=== PATIENT | male | born 1990 | race Caucasian/White ===

== ENCOUNTER 2016-12-01 13:31 | Emergency (ER) | payer BC ==
[2016-12-01 13:39] VITALS: BMI 34.4
--- NOTE | 2016-12-01 13:48 | PDOC ---
History of Present Illness - General Chief Complaint: Cold Symptoms Stated Complaint: FEVER Time Seen by Provider: 12/01/16 13:44 - History of Present Illness Initial Comments: Healthy 26 year old male presenting with fevers, chills, myalgias, and sore throat for the past week. He recently returned from a business trip to [place] and did have a sick contact on the flight back who was coughing gin the seat next to him. He first noticed a generalized feeling of warmth on 11/25/2016. He then began to experience myalgias during the week and 4 days ago experienced sore throat. he did have one episode of diarrhea directly prior to his day of admission. He denies chest pain, cough, nausea, vomiting, constipation, or any other sick symptoms. 12/01/16 18:25 12/01/16 18:57 Past History - Past Medical History Allergies/Adverse Reactions: Allergies Allergy/AdvReac Type Severity Reaction Status Date / Time No Known Allergies Allergy Verified 12/01/16 13:32 Home Medications: Ambulatory Orders Ibuprofen [Advil -] 400 mg PO PRN PRN 12/01/16 Diabetes: No HTN: No Hypercholesterolemia: No Other medical history: DENIES - Psycho/Social/Smoking Cessation Hx Anxiety: No Suicidal Ideation: No Smoking Status: No Smoking History: Never smoked Have you smoked in the past 12 months: No Number of Cigarettes Smoked Daily: 0 Information on smoking cessation initiated: No Hx Alcohol Use: No Drug/Substance Use Hx: No Substance Use Type: None Review of Systems - Review of Systems Constitutional: Yes: Chills, Fever, Night Sweats. No: Loss of Appetite HEENTM: No: Blurred Vision, Double Vision Respiratory: No: Cough, Shortness of Breath Cardiac (ROS): No: Chest Pain ABD/GI: Yes: Diarrhea. No: Constipated, Nausea, Poor Appetite : No: Burning, Dysuria Musculoskeletal: Yes: Muscle Pain. No: Back Pain, Joint Pain Integumentary: No: Change in Color, Erythema, Lesions Neurological: No: Headache, Paresthesia *Physical Exam - Vital Signs Last Vital Signs Temp Pulse Resp BP Pulse Ox 103.2 F H 114 H 20 130/87 96 12/01/16 13:32 12/01/16 13:32 12/01/16 13:32 12/01/16 13:32 12/01/16 13:32 - Physical Exam General Appearance: Yes: Nourished, Appropriately Dressed. No: Apparent Distress HEENT: positive: EOMI, ALEXANDER, Normal ENT Inspection (with some slight erythema in his posterior oropharynx) Neck: positive: Trachea midline, Normal Thyroid, Supple. negative: Tender, Rigid Respiratory/Chest: positive: Lungs Clear, Normal Breath Sounds. negative: Chest Tender, Respiratory Distress, Accessory Muscle Use Cardiovascular: positive: Regular Rhythm, Regular Rate, S1, S2, Tachycardia. negative: Edema, Murmur Gastrointestinal/Abdominal: positive: Normal Bowel Sounds, Flat, Soft. negative : Tender, Organomegaly Musculoskeletal: positive: Normal Inspection Extremity: positive: Normal Inspection, Normal Range of Motion Integumentary: positive: Normal Color, Dry, Warm Neurologic: positive: Fully Oriented, Alert, Normal Mood/Affect, Normal Response ED Treatment Course - LABORATORY CBC & Chemistry Diagram: 12/01/16 14:40 12/01/16 14:40 Medical Decision Making - Medical Decision Making 12/01/16 18:26 Healthy 26 year old male presenting with fevers, sore throat, myalgias for the past week. This is most likely a prolonged course of a viral illness but things to consider include superimposed bacterial infection or post viral bacterial infection. TB could of concern given his night sweats and fevers but he is not likely at risk for this given his lack of international travel. Zika virus and West Nile virus. CBC and CMP significant for elevation 2.5 x ALT and 2 x AST and 2 x Alk Phos with low albumin to 3.4. Overall still likely consistent with viral syndrome. RUQ US significant for fatty liver change vs. other liver pathology so will refer to primary care physician on Saturday. Patient's fever decreased after 975 PO tylenol and tachycardia also resolved. VSS on discharge. 12/01/16 18:38 12/01/16 19:01 *DC/Admit/Observation/Transfer Diagnosis at time of Disposition: Transaminitis, Viral illness - Discharge Dispostion Disposition: HOME Condition at time of disposition: Improved Admit: No - Referrals Referrals: Chirag Correia MD [Staff Physician] - - Patient Instructions Printed Discharge Instructions: DI for Viral Syndrome Additional Instructions: You were seen for fever, muscle pains, and body aches over the past few week. We believe that this is most likely a viral illness. We ran some labs on you and noticed that your liver enzymes were elevated. We did an abdominal ultrasound and did not find anything wrong with your gallbladder but did see some changes in your liver. Please follow up with your primary care physician at your appointment tomorrow to discuss these ultrasound results along with your elevated liver enzymes. You can take tylenol for the fevers. Please return if your fevers are getting worse despite the Tylenol or you aren't improving over the next few days. Print Language: CROATIAN - Attestations Physician Attestion: 12/01/16 16:58 I, Dr. Елена Nagel, attest that this document has been prepared under my direction and personally reviewed by me in its entirety. I further attest, that it accurately reflects all work, treatment, procedures and medical decision -making performed by me. 12/01/16 19:02
[2016-12-01] MEDS ORDERED: ACETAMINOPHEN 325 MG TABLET (FP) PO ONE (14:15)
[2016-12-01] MEDS ORDERED: ACETAMINOPHEN 325 MG TABLET (FP) ONE (14:32)
[2016-12-01 14:48] LABS: BASOPHIL 1.5 % (0-2.0); EOSINOPHIL 0.1 % (0-4.5); MCH 28.2 pg (25.7-33.7); MCHC 33.9 g/dl (32.0-35.9); MEAN CELL VOLUME 83.1 fl (80-96); MEAN PLT VOLUME 7.9 fl (7.5-11.1); NEUTROPHILS 78.9 % (42.8-82.8); PLATELET COUNT 248 K/MM3 (134-434); RDW 13.4 % (11.9-15.9); WHITE BLOOD COUNT 9.2 K/mm3 (4.0-10.8)
[2016-12-01 15:02] LABS: ALBUMIN 3.4 g/dl (3.5-5.0); ALK PHOS 121 U/L (32-92); ANION GAP 9 (8-16); BILIRUBIN,TOTAL 0.9 mg/dl (0.2-1.0); CALCIUM 8.7 mg/dl (8.4-10.2); CO2 27 mmol/L (22-28); GLUCOSE,RANDOM 96 mg/dl (74-106); SGOT/AST 68 U/L (10-42); SGPT/ALT 138 U/L (10-40); TOT PROT 6.8 g/dl (6.4-8.3)
[2016-12-01 16:26] VITALS: BP 120/83; PULSE 92; TEMP 100.2
--- NOTE | 2016-12-01 16:38 | PDOC ---
Attending Attestation - Resident Resident Name: ShonaChaskulwant - ED Attending Attestation I have performed the following: I have examined & evaluated the patient, The case was reviewed & discussed with the resident, I agree w/resident's findings & plan - HPI HPI: 12/01/16 16:29 1 wk of fever with nausea, body aches, fever, chills no cough mild intermittent headache resolves with advil no neck stiffness, no photophobia, no cough no urinary sx no rash travelled to [place] 11/16 to 11/20, sx started on 11/25 saw PMD yesterday, now to ED for ongoing high fever - Physicial Exam PE: 12/01/16 16:31 anicteric op with slight tonsillar erythema neck supple no nodes chest clear heart rr no M abd neg, no ruq tenderness, no hepatomegaly extrem nl skin no rash - Medical Decision Making 12/01/16 16:32 labs reviewed Laboratory Results - last 24 hr 12/01/16 12/01/16 14:40 14:40 WBC 9.2 RBC 4.97 Hgb 14.0 Hct 41.3 MCV 83.1 MCH 28.2 MCHC 33.9 RDW 13.4 Plt Count 248 MPV 7.9 Neutrophils % 78.9 Lymphocytes % 8.9 Monocytes % 10.6 H Eosinophils % 0.1 Basophils % 1.5 Sodium 134 L Potassium 4.0 Chloride 98 Carbon Dioxide 27 Anion Gap 9 BUN 10 Creatinine 1.0 Creat Clearance w eGFR > 60 Random Glucose 96 Calcium 8.7 Total Bilirubin 0.9 AST 68 H ALT 138 H Alkaline Phosphatase 121 H Total Protein 6.8 Albumin 3.4 L WBC nl with increased monos, suggests viral lfts with mild increased transaminases, nl bili, mild low albumin sono ruq (prelim) with nl liver and nl ducts, nl GB Assess; viral syndrome with increased LFT's, less likely viral hepatitis, more likely other viral illness, will follow up with Dr. Meredith who has been following him, has appt on Saturday
== END 2016-12-01 17:04 | disposition home or self-care (01) ==
LOC: FER 13:31
DX: R74.0 Nonspecific elevation of levels of transaminase and lactic acid dehydrogenase [LDH] (principal); B34.9 Viral infection, unspecified
CPT/HCPCS: 36415; 71020-TC; 76705-TC; 80053; 85025; 99282-25

== ENCOUNTER 2016-12-02 13:58 | Inpatient (IN) | payer BC ==
[2016-12-02] MEDS ORDERED: SODIUM CHLORIDE 0.9% 1000 ML INFUS.BAG IV ONE (14:11)
[2016-12-02 14:15] VITALS: BMI 34.4
[2016-12-02 14:15] LABS: URINE APPEARANCE Cloudy; URINE BILIRUBIN 2+ (NEGATIVE); URINE BLOOD Negative (NEGATIVE); URINE GLUCOSE (UA) Negative (NEGATIVE); URINE KETONE 4+ (NEGATIVE); URINE LEUK ESTERASE Negative (NEGATIVE); URINE NITRITE Negative (NEGATIVE)
[2016-12-02 14:19] LABS: URINE COLOR YELLOW; URINE PROTEIN 2+ (NEGATIVE)
[2016-12-02] MEDS ORDERED: morphine CARPU-JECT 4 MG/1 ML DISP.SYRIN ONE ×2 (14:20→16:47)
[2016-12-02] MEDS ORDERED: morphine CARPU-JECT 4 MG/1 ML DISP.SYRIN IVPUSH ONE ×2 (14:21→16:47)
[2016-12-02 14:22] LABS: URINE RBC 0-2 /hpf (0-3)
[2016-12-02 14:23] LABS: URINE BACTERIA FEW /hpf (NEGATIVE)
[2016-12-02 14:24] LABS: BASOPHIL 2.5 % (0-2.0); MCH 27.8 pg (25.7-33.7); MCHC 33.1 g/dl (32.0-35.9); MEAN CELL VOLUME 83.9 fl (80-96); MEAN PLT VOLUME 8.1 fl (7.5-11.1); NEUTROPHILS 68.4 % (42.8-82.8); PLATELET COUNT 339 K/MM3 (134-434); RDW 13.6 % (11.9-15.9); WHITE BLOOD COUNT 10.7 K/mm3 (4.0-10.8)
[2016-12-02 14:37] LABS: ALBUMIN 3.5 g/dl (3.5-5.0); ALK PHOS 131 U/L (32-92); ANION GAP 12 (8-16); BILIRUBIN,TOTAL 1.2 mg/dl (0.2-1.0); CO2 25 mmol/L (22-28); CREATININE 1.1 mg/dl (0.6-1.3); GLUCOSE,RANDOM 108 mg/dl (74-106); SGOT/AST 77 U/L (10-42); SGPT/ALT 151 U/L (10-40); TOT PROT 7.3 g/dl (6.4-8.3)
--- NOTE | 2016-12-02 14:37 | PDOC ---
Attending Attestation - Resident Resident Name: Jerome Davenportel - ED Attending Attestation I have performed the following: I have examined & evaluated the patient, The case was reviewed & discussed with the resident, I agree w/resident's findings & plan, Exceptions are as noted - HPI HPI: 12/02/16 14:34 26 yo M with no pmhx here with second ed visit for lower abd pain and fever. pt states he has been having fever for 7 days, today developed abd pain. worse lower abd, and left side. worse with movement and deep breath. no cough. did have sore throat throughout the week. chills. did have recent travel to [place], states he sat next to someone on the plan who was also sick. no nausea or vomiting. no urinary complaints. just dark urine . states may have gotten a few mosquito bites. pt was seen yesterday for the same found to have fever, mildly elevated liver enzymes, and us negative for gallstones, mild fatty liver. other mckeon negative. pain llq , no mod factors. sharp, intermittent, no dysuria, no testicular pain, no flank pain. no hematuria, but did not dark urine. today. took tylenol just prior to arrival. no vomiting but does c/o nausea. 12/02/16 14:50 - Physicial Exam PE: 12/02/16 14:36 on exam pt uncomfortable, diaphoretic, lungs clear heart reg tachycardia no mrg. abd soft obese, llq ttp, suprapubic ttp, no cva tendenress. ext wwp skin warm and diaphoretic, no rash. nuero alert oriented x 3 moves all four ext. - Medical Decision Making 12/02/16 14:36 26 yo male with llq abd pain and fevers, now dark urine. differential diverticulitis, viral syndrome, splenic injury, mono. pyelo, infected renal colic or stone, plan bedside fast evaluation iv hydration renal us, likely ct a/ p eval divertiuclitis or other solid organ injury. 12/02/16 14:49 12/02/16 15:03 focused ED ultrasound FAST performed, for undifferentiate abd pain r/o free fluid, right and left upper quadrants scanned with phased array probe, no free fluid noted. no hydroneprhosis of kidneys appreciated. bladder nondistended, no free fluid noted in the pelvis. impression: negative FAST exam, no intraperitoneal free fluid, no hydronephrosis
[2016-12-02] MEDS ORDERED: ONDANSETRON 4 MG/2 ML VIAL ONE (15:00)
--- NOTE | 2016-12-02 15:00 | PDOC ---
History of Present Illness - History of Present Illness Initial Comments: 12/02/16 15:29 Patient is a 26 year old male who presents with abdominal pain. The patient reports a 1 week history of fevers, nausea, and intermittent left-sided abdominal pain. He states that the abdominal pain has been getting progressively worse and more frequent with radiation to his left shoulder and left back. He reports that the pain is worse with movement and comes in waves. He states that he recently traveled from [place] and had a sick contact on the plane ride. He was recently seen in the ED 1 day ago for the same complaints. He was found to have some mild elevation in his liver enzymes at that time and a US of the gallbladder was normal. He denies any SOB, chest pain, or changes with urination or bowel movements. <Sukhjinder Davenport - Last Filed: 12/02/16 19:47> <Kerri Negrete I - Last Filed: 12/02/16 19:57> - General Chief Complaint: Pain, Acute Stated Complaint: abd pain Time Seen by Provider: 12/02/16 14:00 Past History - Past Medical History Diabetes: No HTN: No Hypercholesterolemia: No - Psycho/Social/Smoking Cessation Hx Anxiety: No Suicidal Ideation: No Smoking Status: No Smoking History: Never smoked Have you smoked in the past 12 months: No Number of Cigarettes Smoked Daily: 0 Hx Alcohol Use: Yes Drug/Substance Use Hx: No Substance Use Type: None <Sukhjinder Davenport - Last Filed: 12/02/16 19:47> <Kerri Negrete I - Last Filed: 12/02/16 19:57> - Past Medical History Allergies/Adverse Reactions: Allergies Allergy/AdvReac Type Severity Reaction Status Date / Time No Known Allergies Allergy Verified 12/02/16 13:59 Home Medications: Ambulatory Orders NK [No Known Home Medication] 12/02/16 Review of Systems - Review of Systems Constitutional: Yes: Chills, Fever, Night Sweats HEENTM: Yes: Throat Pain. No: Throat Swelling Respiratory: No: Cough, Shortness of Breath Cardiac (ROS): No: Chest Pain, Palpitations ABD/GI: Yes: Nausea. No: Constipated, Diarrhea, Rectal Bleeding, Vomiting, Tarry Stools : No: Burning, Dysuria, Pain Integumentary: No: Rash Neurological: No: Headache, Numbness, Tingling, Weakness <Sukhjinder Davenport - Last Filed: 12/02/16 19:47> *Physical Exam - Vital Signs Last Vital Signs Temp Pulse Resp BP Pulse Ox 98.8 F 99 H 20 139/84 95 12/02/16 13:59 12/02/16 13:59 12/02/16 13:59 12/02/16 14:24 12/02/16 13:59 - Physical Exam Comments: 12/02/16 16:06 General Appearance: Nourished. No Apparent Distress HEENT: No Pharyngeal Erythema, Tonsillar Exudate, Tonsillar Erythema Respiratory/Chest: Lungs Clear, Normal Breath Sounds. No Crackles, Rales, Rhonchi, Wheezing Cardiovascular: Regular Rhythm, Regular Rate. No Murmur, Gallop/S3, Gallop/S4 Gastrointestinal/Abdominal: Normal Bowel Sounds, Soft, Tenderness to palpation in the left quadrants and left flank. No Guarding, Rebound, Hernia, Hepatomegaly, Spleenomegaly Musculoskeletal: No CVA Tenderness Extremity: Normal Capillary Refill Integumentary: Normal Color, Dry, Warm Neurologic: Fully Oriented, Alert, Normal Mood/Affect, Normal Response <Sukhjinder Davenport - Last Filed: 12/02/16 19:47> - Vital Signs Last Vital Signs Temp Pulse Resp BP Pulse Ox 103.1 F H 114 H 20 154/91 99 12/02/16 17:04 12/02/16 19:52 12/02/16 19:52 12/02/16 19:52 12/02/16 19:52 <Kerri Ngerete I - Last Filed: 12/02/16 19:57> ED Treatment Course - LABORATORY CBC & Chemistry Diagram: 12/02/16 14:15 12/02/16 14:15 - ADDITIONAL ORDERS Additional order review: Laboratory Results 12/02/16 12/02/16 12/02/16 14:15 14:15 14:10 Sodium 132 L Potassium 3.6 Chloride 95 L Carbon Dioxide 25 Anion Gap 12 BUN 10 Creatinine 1.1 Creat Clearance w eGFR > 60 Random Glucose 108 H Calcium 9.0 Total Bilirubin 1.2 H D AST 77 H ALT 151 H Alkaline Phosphatase 131 H Creatine Kinase 88 Total Protein 7.3 Albumin 3.5 Urine Color Yellow Urine Appearance Cloudy Urine pH 6.0 Ur Specific [place] 1.020 Urine Protein 2+ H Urine Glucose (UA) Negative Urine Ketones 4+ H Urine Blood Negative Urine Nitrite Negative Urine Bilirubin 2+ H Urine Urobilinogen 2.0 Ur Leukocyte Esterase Negative Urine RBC 0-2 Urine WBC 2-4 Urine Bacteria Few 12/02/16 14:15 RBC 5.33 MCV 83.9 MCHC 33.1 RDW 13.6 MPV 8.1 Neutrophils % 68.4 Lymphocytes % 16.3 D Monocytes % 12.8 H Eosinophils % 0.0 D Basophils % 2.5 H - Medications Given in the ED: ED Medications Discontinued Medications Generic Name Dose Route Start Last Admin Trade Name Baironq PRN Reason Stop Dose Admin Morphine Sulfate 4 mg 12/02/16 14:21 12/02/16 14:23 Morphine Injection - IVPUSH 12/02/16 14:22 4 mg ONCE ONE Administration Sodium Chloride 1,000 ml 12/02/16 14:11 12/02/16 14:24 Normal Saline - IV 12/02/16 14:12 1,000 ml ONCE ONE Administration <Sukhjinder Davenport - Last Filed: 12/02/16 19:47> - LABORATORY CBC & Chemistry Diagram: 12/02/16 14:15 12/02/16 14:15 - ADDITIONAL ORDERS Additional order review: Laboratory Results 12/02/16 12/02/16 12/02/16 17:33 14:15 14:15 Sodium 132 L Potassium 3.6 Chloride 95 L Carbon Dioxide 25 Anion Gap 12 BUN 10 Creatinine 1.1 Creat Clearance w eGFR > 60 Random Glucose 108 H Lactic Acid 1.7 Calcium 9.0 Total Bilirubin 1.2 H D AST 77 H ALT 151 H Alkaline Phosphatase 131 H Creatine Kinase 88 Total Protein 7.3 Albumin 3.5 Urine Color Urine Appearance Urine pH Ur Specific [place] Urine Protein Urine Glucose (UA) Urine Ketones Urine Blood Urine Nitrite Urine Bilirubin Urine Urobilinogen Ur Leukocyte Esterase Urine RBC Urine WBC Urine Bacteria 12/02/16 14:10 Sodium Potassium Chloride Carbon Dioxide Anion Gap BUN Creatinine Creat Clearance w eGFR Random Glucose Lactic Acid Calcium Total Bilirubin AST ALT Alkaline Phosphatase Creatine Kinase Total Protein Albumin Urine Color Yellow Urine Appearance Cloudy Urine pH 6.0 Ur Specific [place] 1.020 Urine Protein 2+ H Urine Glucose (UA) Negative Urine Ketones 4+ H Urine Blood Negative Urine Nitrite Negative Urine Bilirubin 2+ H Urine Urobilinogen 2.0 Ur Leukocyte Esterase Negative Urine RBC 0-2 Urine WBC 2-4 Urine Bacteria Few 12/02/16 12:50 Influenza Types A,B Antigen (DANGELO) - Final Nasopharyngeal Swab - Final 12/02/16 14:15 RBC 5.33 MCV 83.9 MCHC 33.1 RDW 13.6 MPV 8.1 Neutrophils % 68.4 Lymphocytes % 16.3 D Monocytes % 12.8 H Eosinophils % 0.0 D Basophils % 2.5 H - RADIOLOGY Radiology Studies Ordered: 12/02/16 19:57 [employer]: ([email or web address]) Begin of Report Content Referring Physician: Patient Name: Jay Petersen THIS IS A PRELIMINARY REPORT FROM [facility] EXAM: CT abdomen/pelvis with contrast IMAGES: 544 DATE OF SERVICE: 2016-12-02 16:15:51.0 REASON FOR EXAM: Left lower quadrant pain, rule out diverticulitis COMPARISON: None FINDINGS: There is mild atelectasis in the lower lobes. There is no free air. 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 Additional peripheral low density findings are noted in the spleen possibly regions of splenic infarction. There is minimal adjacent fluid in the retroperitoneum extending in the posterior pararenal fat to the pelvis. There are no obvious gallstones. There is no hydronephrosis. There are no renal calculi. There is no evidence of intestinal obstruction.mild bowel wall thickening noted in portions of the left colon is likely related to decompression of the bowel in these segments. There is an incidental small fat containing umbilical hernia. There are no incarcerated bowel loops. The appendix is normal in size. There is no evidence of appendicitis. Urinary bladder is unremarkable. There are no bladder calculi. Trace free fluid is noted in the dependent portion of the pelvis. THIS DOCUMENT HAS BEEN ELECTRONICALLY SIGNED Rigoberto Ornelas MD 12/02/2016 17:11 RENATO Duran Please call [facility] [phone] ([phone]) with questions. - Medications Given in the ED: ED Medications Discontinued Medications Generic Name Dose Route Start Last Admin Trade Name Freq PRN Reason Stop Dose Admin Morphine Sulfate 4 mg 12/02/16 14:21 12/02/16 14:23 Morphine Injection - IVPUSH 12/02/16 14:22 4 mg ONCE ONE Administration Morphine Sulfate 4 mg 12/02/16 16:47 12/02/16 16:57 Morphine Injection - IVPUSH 12/02/16 16:48 4 mg ONCE ONE Administration Ondansetron HCl 4 mg 12/02/16 15:02 12/02/16 15:03 Zofran Injection IVPUSH 12/02/16 15:03 4 mg ONCE ONE Administration Sodium Chloride 1,000 ml 12/02/16 14:11 12/02/16 14:24 Normal Saline - IV 12/02/16 14:12 1,000 ml ONCE ONE Administration Sodium Chloride 1,000 ml 12/02/16 19:10 12/02/16 18:25 Normal Saline - IV 12/02/16 19:11 1,000 ml NOW ONE Administration <Kerri Negrete I - Last Filed: 12/02/16 19:57> Medical Decision Making - Medical Decision Making 12/02/16 16:07 Patient is a 26 year old male who presents with abdominal pain. Differential includes but is not limited to: Pylonephritis, diverticulitis, viral infection, bacterial infection, metabolic abnormalities. Given his previous presentation yesterday as well as 1 week history of fevers, we believe it is reasonable to obtain a CT abdomen to evaluate for intra-abdominal pathology. We will also send a cbc, cmp, UA, given his history of elevated liver enzymes and to evaluate for metabolic abnormalities. We will send an influenza swab as well. 12/02/16 19:26 CMP was remarkable for a slight elevation in her liver enzymes since his ED visit 1 day ago. Otherwise, his lab values are unremarkable. CT abdomen demonstrated a large splenic cyst as well as concerns for splenic infarcts as read by cannoneer radiologist. We will send a monospot, EBV, and CMV screens due to the possibility that his symptoms are due to a viral illness. We believe that he requires admission for treatment. Patient's PCP is Dr. Correia who admits to the hospitalists and we will contact to discuss the case. <Sukhjinder Davenport - Last Filed: 12/02/16 19:47> *DC/Admit/Observation/Transfer - Discharge Dispostion Admit: Yes - Attestations Physician Attestion: 12/02/16 19:26 I, Dr. Sukhjinder Davenport, attest that this document has been prepared under my direction and personally reviewed by me in its entirety. I further attest, that it accurately reflects all work, treatment, procedures and medical decision -making performed by me. <Sukhjinder Davenport - Last Filed: 12/02/16 19:47> <Kerri Negrete I - Last Filed: 12/02/16 19:57> Diagnosis at time of Disposition: Splenic infarct Fever Qualifiers: Fever type: unspecified Qualified Code(s): R50.9 - Fever, unspecified - Discharge Dispostion Condition at time of disposition: Guarded
[2016-12-02] MEDS ORDERED: ONDANSETRON 4 MG/2 ML VIAL IVPUSH ONE (15:02)
[2016-12-02] MEDS ORDERED: SODIUM CHLORIDE 0.9% 500 ML INFUS.BAG IV ONE (19:10)
[2016-12-02] MEDS ORDERED: ACETAMINOPHEN 325 MG TABLET (FP) PO ONE (20:50)
[2016-12-02] MEDS ORDERED: DEXTROSE 5%-0.45% SALINE 1,000 ML IV SCH (21:00)
--- NOTE | 2016-12-02 22:00 | HP ---
CHIEF COMPLAINT: Fever, Abdominal Pain PCP: Dr. Correia HISTORY OF PRESENT ILLNESS: This is a 26 y/o male with no significant medical history who presents to the ED with fever, bodyaches x 7 days, abdominal pain and nausea x today. Patient reports having fever, chills, body-aches with night sweats last Saturday. Patient reports seeing his PMD last Saturday and having a PPD, throat culture, blood cultures. Patient reports having epigastric pain radiating to LUQ and L- shoulder. Patient reports recent travel to [place] 11/17-11/20, with a sick contact exposure mid air. Patient denies CP, constipation, dysuria. ER course was notable for: (1) CTAP- atelectasis, ?splenic infarct (2) T Max 103 (3) WBC 10.7 (4) Lactic Acid 1.7 Recent Travel: [place] PAST MEDICAL HISTORY: None PAST SURGICAL HISTORY: None Social History: Smoking: Never Alcohol: Socially Drugs: Denies Lives with parent, employed/student Family History: Mother: Lymphoma, Renal Colic Father: Hypertension, HLD Grandparents: Cardiac Brother: Renal Colic Allergies No Known Allergies Allergy (Verified 12/02/16 13:59) HOME MEDICATIONS: Home Medications Medication Instructions Recorded NK [No Known Home Medication] 12/02/16 REVIEW OF SYSTEMS CONSTITUTIONAL: fever, chills, Absent: diaphoresis, generalized weakness, malaise, loss of appetite, weight change HEENT: Absent: rhinorrhea, nasal congestion, throat pain, throat swelling, difficulty swallowing, mouth swelling, ear pain, eye pain, visual changes CARDIOVASCULAR: Absent: chest pain, syncope, palpitations, irregular heart rate, lightheadedness , peripheral edema RESPIRATORY: Absent: cough, shortness of breath, dyspnea with exertion, orthopnea, wheezing, stridor, hemoptysis GASTROINTESTINAL: abdominal pain, nausea Absent: abdominal distension, vomiting, diarrhea, constipation, melena, hematochezia GENITOURINARY: Absent: dysuria, frequency, urgency, hesitancy, hematuria, flank pain, genital pain MUSCULOSKELETAL: myalgia Absent: arthralgia, joint swelling, back pain, neck pain SKIN: Absent: rash, itching, pallor HEMATOLOGIC/IMMUNOLOGIC: Absent: easy bleeding, easy bruising, lymphadenopathy, frequent infections ENDOCRINE: Absent: unexplained weight gain, unexplained weight loss, heat intolerance, cold intolerance NEUROLOGIC: Absent: headache, focal weakness or paresthesias, dizziness, unsteady gait, seizure, mental status changes, bladder or bowel incontinence PSYCHIATRIC: Absent: anxiety, depression, suicidal or homicidal ideation, hallucinations. PHYSICAL EXAMINATION Vital Signs - 24 hr 12/02/16 12/02/16 19:52 20:30 Temperature 102.5 F H Pulse Rate 119 H Pulse Rate [ 114 H Left] Respiratory 20 18 Rate Blood Pressure 151/70 Blood Pressure 154/91 [Left Arm] O2 Sat by Pulse 99 95 Oximetry (%) GENERAL: Awake, alert, and fully oriented, in no acute distress. HEAD: Normal with no signs of trauma. EYES: Pupils equal, round and reactive to light, extraocular movements intact, sclera anicteric, conjunctiva clear. No lid lag. EARS, NOSE, THROAT: Ears normal, nares patent, oropharynx clear without exudates. Dry mucous membranes. NECK: Normal range of motion, supple without lymphadenopathy, JVD, or masses. No nuchal rigidity LUNGS: Breath sounds equal, clear to auscultation bilaterally. No wheezes, and no crackles. No accessory muscle use. HEART: Regular rate and rhythm, normal S1 and S2 without murmur, rub or gallop. ABDOMEN: Soft, not distended, normoactive bowel sounds, no guarding, no rebound , no masses. No hepatomegaly or splenomegaly. epigastrium, LUQ tenderness MUSCULOSKELETAL: Normal range of motion at all joints. No bony deformities or tenderness. No CVA tenderness. UPPER EXTREMITIES: 2+ pulses, warm, well-perfused. No cyanosis. No clubbing. No peripheral edema. LOWER EXTREMITIES: 2+ pulses, warm, well-perfused. No calf tenderness. No peripheral edema. NEUROLOGICAL: Cranial nerves II-XII intact. Normal speech. Normal gait. PSYCHIATRIC: Cooperative. Good eye contact. Appropriate mood and affect. SKIN: Warm, dry, normal turgor, no rashes or lesions noted, normal capillary refill. Laboratory Results - last 24 hr 12/02/16 12/02/16 12/02/16 14:10 14:15 14:15 WBC 10.7 RBC 5.33 Hgb 14.8 Hct 44.8 MCV 83.9 MCH 27.8 MCHC 33.1 RDW 13.6 Plt Count 339 D MPV 8.1 Neutrophils % 68.4 Lymphocytes % 16.3 D Monocytes % 12.8 H Eosinophils % 0.0 D Basophils % 2.5 H Sodium 132 L Potassium 3.6 Chloride 95 L Carbon Dioxide 25 Anion Gap 12 BUN 10 Creatinine 1.1 Creat Clearance w eGFR > 60 Random Glucose 108 H Lactic Acid Calcium 9.0 Total Bilirubin 1.2 H D AST 77 H ALT 151 H Alkaline Phosphatase 131 H Creatine Kinase Total Protein 7.3 Albumin 3.5 Urine Color Yellow Urine Appearance Cloudy Urine pH 6.0 Ur Specific [place]rose 1.020 Urine Protein 2+ H Urine Glucose (UA) Negative Urine Ketones 4+ H Urine Blood Negative Urine Nitrite Negative Urine Bilirubin 2+ H Urine Urobilinogen 2.0 Ur Leukocyte Esterase Negative Urine RBC 0-2 Urine WBC 2-4 Urine Bacteria Few 12/02/16 12/02/16 14:15 17:33 WBC RBC Hgb Hct MCV MCH MCHC RDW Plt Count MPV Neutrophils % Lymphocytes % Monocytes % Eosinophils % Basophils % Sodium Potassium Chloride Carbon Dioxide Anion Gap BUN Creatinine Creat Clearance w eGFR Random Glucose Lactic Acid 1.7 Calcium Total Bilirubin AST ALT Alkaline Phosphatase Creatine Kinase 88 Total Protein Albumin Urine Color Urine Appearance Urine pH Ur Specific Penrose Urine Protein Urine Glucose (UA) Urine Ketones Urine Blood Urine Nitrite Urine Bilirubin Urine Urobilinogen Ur Leukocyte Esterase Urine RBC Urine WBC Urine Bacteria ASSESSMENT/PLAN: This is a 26 y/o male with no significant medical history. Admitted for Splenic Infarct, Fever for further evaluation of their emergent condition. Problem List - Problem (1) Splenic infarct Assessment/Plan: - CTAP- see above - Will continue IVF and pain medications and continue to closely monitor - Monitor CBC, BMP Code(s): D73.5 - INFARCTION OF SPLEEN (2) Fever Assessment/Plan: - Likely secondary to Viral Illness vs Bacteria vs PE - Blood Cultures x2-pending - No leukocytosis - Influenza negative - Will give Tylenol and monitor secondary to mildly elevated LFTs - Appreciate ID Consult Code(s): R50.9 - FEVER, UNSPECIFIED Qualifiers: Fever type: unspecified Qualified Code(s): R50.9 - Fever, unspecified (3) Viral illness Assessment/Plan: - [place], EBV- pending - Patient reports having PPD, throat cultures done at his PMD last Saturday, will have day team f/u - Monitor CBC - Monitor Vitals - Continue IVF Code(s): B34.9 - VIRAL INFECTION, UNSPECIFIED (4) Inspiratory pain Assessment/Plan: - Patient reports pain on deep inspiration, concern for PE - Wells Score 6 - CTA- pending - Will start on Lovenox - O2 - Monitor vitals - Incentive Spirometer Code(s): R07.1 - CHEST PAIN ON BREATHING (5) Transaminitis Assessment/Plan: - Likely secondary to medication vs Hepatitis - CTAP- see above - Will order Hepatitis Panel in am - Monitor BMP Code(s): R74.0 - NONSPEC ELEV OF LEVELS OF TRANSAMNS & LACTIC ACID DEHYDRGNSE (6) DVT prophylaxis Assessment/Plan: - OOB - SCDs - Lovenox SQ Code(s): AZR3381 - Visit type - Emergency Visit Emergency Visit: Yes ED Registration Date: 12/02/16 Care time: The patient presented to the Emergency Department on the above date and was hospitalized for further evaluation of their emergent condition. - New Patient This patient is new to me today: Yes Date on this admission: 12/02/16 - Critical Care Critical Care patient: No
[2016-12-02] MEDS ORDERED: ACETAMINOPHEN 325 MG TABLET (FP) ONE (23:41)
[2016-12-02] MEDS: ENOXAPARIN NA (PORCINE) 120 MG/0.8 ML DISP.SYRIN SQ SCH (23:50)
[2016-12-03] MEDS ORDERED: DEXTROSE 5%-0.45% SALINE 1,000 ML IV SCH (00:23)
[2016-12-03] MEDS ORDERED: ACETAMINOPHEN 500 MG TABLET (FP) PO ONE ×2 (06:15→21:17)
[2016-12-03] MEDS ORDERED: ACETAMINOPHEN 500 MG TABLET (FP) ONE (06:27)
[2016-12-03 09:15] LABS: ANION GAP 9 (8-16); CALCIUM 8.1 mg/dl (8.4-10.2); CO2 24 mmol/L (22-28); CREATININE 0.9 mg/dl (0.6-1.3); GLUCOSE,RANDOM 171 mg/dl (74-106)
[2016-12-03 09:16] LABS: BASOPHIL 0.4 % (0-2.0); MCHC 33.8 g/dl (32.0-35.9); MEAN CELL VOLUME 82.9 fl (80-96); MEAN PLT VOLUME 8.8 fl (7.5-11.1); NEUTROPHILS 85.2 % (42.8-82.8); PLATELET COUNT 304 K/MM3 (134-434); RDW 13.7 % (11.9-15.9)
[2016-12-03] MEDS ORDERED: PT OWN MED DRAWER 7, Y5N ONE ×2 (09:31→21:06)
[2016-12-03] MEDS: ENOXAPARIN NA (PORCINE) 120 MG/0.8 ML DISP.SYRIN SQ SCH (09:36)
[2016-12-03 09:37] LABS: INR 1.67 (0.82-1.09); PROTHROMBIN TIME (PATIENT) 18.5 SEC (10.2-13.0)
--- NOTE | 2016-12-03 09:37 | PN ---
Physical Exam: SUBJECTIVE: Patient seen and examined, patient report generalized abdominal pain OBJECTIVE: patient is a 26 y/o male with no significant past medical history admitted from the emergency department for sepsis and gram positive bacteremia. Vital Signs Period Temp Pulse Resp BP Sys/Estrada Pulse Ox Last 24 Hr 102.0 F-103.1 F 110-119 18-20 136-154/70-91 95-99 GENERAL: The patient is awake, alert, and fully oriented, in no acute distress. HEAD: Normal with no signs of trauma. EYES: PERRL, extraocular movements intact, sclera anicteric, conjunctiva clear. No ptosis. ENT: Ears normal, nares patent, oropharynx clear without exudates, moist mucous membranes. NECK: Trachea midline, full range of motion, supple. LUNGS: Breath sounds equal, clear to auscultation bilaterally, no wheezes, no crackles, no accessory muscle use. HEART: Regular rate and rhythm, S1, S2 without murmur, rub or gallop. ABDOMEN: Soft, diffuse abdominal tenderness, normoactive bowel sounds, no guarding, no rebound, no hepatosplenomegaly, no masses. EXTREMITIES: 2+ pulses, warm, well-perfused, no edema. NEUROLOGICAL: Cranial nerves II through XII grossly intact. Normal speech, gait not observed. PSYCH: Normal mood, normal affect. SKIN: Warm, dry, normal turgor, no rashes or lesions noted Laboratory Results - last 24 hr 12/02/16 12/03/16 12/03/16 20:02 07:30 07:30 WBC 15.0 H D RBC 4.82 Hgb 13.5 Hct 39.9 MCV 82.9 MCH 28.0 MCHC 33.8 RDW 13.7 Plt Count 304 MPV 8.8 Neutrophils % 85.2 H D Lymphocytes % 7.9 L D Monocytes % 6.5 Eosinophils % 0.0 Basophils % 0.4 Sodium 131 L Potassium 3.4 L Chloride 98 Carbon Dioxide 24 Anion Gap 9 BUN 7 D Creatinine 0.9 Random Glucose 171 H D Calcium 8.1 L Monoscreen Negative Active Medications Generic Name Dose Route Start Last Admin Trade Name Freq PRN Reason Stop Dose Admin Enoxaparin Sodium 110 mg 12/02/16 23:45 12/03/16 09:36 Lovenox - SQ 110 mg BID DARREL Administration Ceftriaxone Sodium 100 mls @ 200 mls/hr 08/07/17 11:30 12/03/16 12:20 Rocephin 2gm Ivpb (Pre-Docked) IVPB 200 mls/hr DAILY DARREL Administration Vancomycin HCl 250 mls @ 166.667 mls/hr 12/03/16 12:00 Vancomycin (Pre-Docked) IVPB Q12H DARREL Potassium Chloride/Sodium Chloride 1,000 mls @ 100 mls/hr 12/03/16 13:00 Ns+20 Meq Kcl - IV ASDIR DARREL Morphine Sulfate 4 mg 12/02/16 20:58 12/03/16 10:40 Morphine Injection - IVPUSH 4 mg Q4H PRN Administration PAIN Microbiology 12/02/16 17:33 Blood - Peripheral Venous Blood Culture - Preliminary Pending Organism 12/02/16 17:33 Blood - Peripheral Venous Blood Culture - Preliminary Pending Organism 12/02/16 12:50 Nasopharyngeal Swab Influenza Types A,B Antigen (DANGELO) - Final 12/02/16 12:50 Nasopharyngeal Swab - Final IMAGING ct abd/pelvis reviewed splenic infarct noted ASSESSMENT/PLAN: 1) sepsis gram positive bacteremia vs septic embolic - pending echo - start vanc and rocephin, appreciate ID input for antibiotic approval - monitor wbc and fever curve 2) gi transanimtis - monitor lft's, pending hepatitis panel 3) pulm hypoxia and pain upon inspiration - pending cta of chest r/o pe - pending echo r/o pericardial effusion - continue lovenox f/e/n - regular diet - replete potassium ppx - lovonex - oob - scd - pepcid dispo: requires inpatient telemetry Visit type - Emergency Visit Emergency Visit: Yes ED Registration Date: 12/02/16 Care time: The patient presented to the Emergency Department on the above date and was hospitalized for further evaluation of their emergent condition. - New Patient This patient is new to me today: Yes Date on this admission: 12/03/16 - Critical Care Critical Care patient: No - Discharge Referral Referred to [facility] No
[2016-12-03] MEDS: morphine CARPU-JECT 4 MG/1 ML DISP.SYRIN IVPUSH PRN ×3 (10:40→21:17)
[2016-12-03] MEDS: CEFTRIAXONE 100 ML IVPB SCH (12:20)
[2016-12-03] MEDS ORDERED: D5-NS + 20 MEQ KCL - 1,000 ML IV SCH (12:30)
[2016-12-03] MEDS: VANCOMYCIN 1 GRAM (PRE-DOCKED) 250 ML IVPB SCH (12:59)
[2016-12-03] MEDS: SODIUM CHLORIDE 0.9%/KCL 1,000 ML IV SCH (13:03)
[2016-12-03] MEDS ORDERED: HYDROmorphone HCL CARPU-JECT 1 MG/1 ML DISP.SYRIN IVPUSH ONE (13:11)
[2016-12-03] MEDS ORDERED: POTASSIUM CHLORIDE TABS 20 MEQ TABLET.ER (FP) PO ONE (13:30)
[2016-12-03 13:51] LABS: ALBUMIN 2.8 g/dl (3.5-5.0); ALK PHOS 98 U/L (32-92); AMYLASE 56 U/L (25-125); BILIRUBIN,DIRECT 0.4 mg/dl (0.0-0.2); BILIRUBIN,TOTAL 1.1 mg/dl (0.2-1.0); CPK 56 IU/L (39-308); MAGNESIUM 1.9 mg/dL (1.8-2.4); PHOSPHOROUS 2.3 mg/dl (2.5-4.6); SGOT/AST 34 U/L (10-42); SGPT/ALT 94 U/L (10-40)
[2016-12-03] MEDS: DOCUSATE SODIUM 100 MG CAPSULE (FP) PO SCH ×2 (14:22→21:18)
[2016-12-03] MEDS: NAPH,MB-DB/K PH,MBDB POWDER PACKET PO SCH ×2 (14:22→21:18)
[2016-12-03 14:29] LABS: TROPONIN I (DFP) < 0.03 ng/ml (0.03-0.50)
[2016-12-03] MEDS ORDERED: MAGNESIUM SULF 50% (8.12 MEQ/2 ML-1 GM VIAL) IVPB ONE (14:30)
[2016-12-03 15:59] LABS: URINE MARIJUANA THC NEGATIVE ng/ml (CUTOFF=50)
--- NOTE | 2016-12-03 18:04 | PN ---
Progress Note (short form) - Note Progress Note: ID Consult dictated Staph bacteremia/ sepsis, probable endocarditis Splenic infarcts, probable septic emboli ? Splenic abscess Await c/s Empiric vancomycin/ ceftriaxone Echocardiogram HIV test (pt consents)
--- NOTE | 2016-12-03 19:20 | EKG ---
Test Reason : Blood Pressure : / mmHG Vent. Rate : 110 BPM Atrial Rate : 110 BPM P-R Int : 150 ms QRS Dur : 084 ms QT Int : 328 ms P-R-T Axes : 041 028 023 degrees QTc Int : 443 ms SINUS TACHYCARDIA OTHERWISE NORMAL ECG NO PREVIOUS ECGS AVAILABLE Confirmed by KWESI BIRCH MD ([id number] on 12/03/2016 7:20:17 PM Referred By: Lauren Diaz Confirmed By:KWESI BIRCH MD
[2016-12-03] MEDS: FAMOTIDINE 20 MG TABLET PO SCH (21:18)
[2016-12-04] MEDS: VANCOMYCIN 1 GRAM (PRE-DOCKED) 250 ML IVPB SCH ×3 (00:20→23:14)
[2016-12-04] MEDS: morphine CARPU-JECT 4 MG/1 ML DISP.SYRIN IVPUSH PRN (03:20)
[2016-12-04 08:10] LABS: MCH 28.1 pg (25.7-33.7); MCHC 33.7 g/dl (32.0-35.9); MEAN CELL VOLUME 83.4 fl (80-96); MEAN PLT VOLUME 9.2 fl (7.5-11.1); PLATELET COUNT 335 K/MM3 (134-434); RDW 14.1 % (11.9-15.9); WHITE BLOOD COUNT 26.4 K/mm3 (4.0-10.8)
[2016-12-04 08:31] LABS: ALBUMIN 2.6 g/dl (3.5-5.0); ALK PHOS 92 U/L (32-92); ANION GAP 10 (8-16); CALCIUM 8.2 mg/dl (8.4-10.2); CO2 23 mmol/L (22-28); CREATININE 0.9 mg/dl (0.6-1.3); GLUCOSE,RANDOM 155 mg/dl (74-106); MAGNESIUM 2.4 mg/dL (1.8-2.4); PHOSPHOROUS 2.6 mg/dl (2.5-4.6); SGOT/AST 27 U/L (10-42); SGPT/ALT 75 U/L (10-40); TOT PROT 6.3 g/dl (6.4-8.3)
--- NOTE | 2016-12-04 08:44 | CONS ---
DATE OF CONSULTATION: DATE OF DICTATION: 12/03/2016 HISTORY OF PRESENT ILLNESS: The patient is a 26-year-old previously healthy male evaluated for sepsis. The patient presented to the hospital on December 02, 2016, with complaints of abdominal pain and fever. He reports having generalized body ache for approximately 1 week associated with left upper quadrant abdominal pain for 1-2 days prior to admission. He also began to develop fever prior to admission. He saw his primary care physician where blood work and cultures were done as well as a PPD applied. Symptoms worsened prompting him to come to the emergency room. In the emergency room, patient was ill-appearing. He was febrile, tachycardic, and diaphoretic. Blood cultures are now positive for gram-positive cocci in clusters in 4 out of 4 bottles. He denies having any skin infections. No infected cuts or bruises. He denies history of injection drug use. Of note, the patient recently traveled to [place] where he stayed for 3 days and was well while he was down there. He did have some mosquito bites, but no other inject bites reported. PAST MEDICAL HISTORY: Negative. ALLERGIES: No known allergies. SOCIAL HISTORY: He both works and goes to school. He is a surgical aide and attends school. He is a nonsmoker, nondrinker. No history of injection drug use. He denies risk factors for HIV. He has tested HIV negative in the past. SYSTEMS REVIEW: Neurologic: No loss of consciousness, seizure activity, or focal weakness. Cardiac: Negative for chest pain or palpitations. Respiratory: Negative for cough or sputum production. Gastrointestinal: Negative for vomiting or diarrhea. Genitourinary: Negative for urinary tract infection. LABORATORY DATA: White count 15.0, 85 neutrophils, 7 lymphocytes, 6 monocytes, hematocrit 39.9, platelet count 304. BUN 7, creatinine 0.9, total bilirubin 1.1, alkaline phosphatase 95, AST 34, ALT 94. Urinalysis 2-[address] scan of the abdomen and pelvis showed splenic cyst with splenic infarct and small perisplenic fluid collection.. PHYSICAL EXAMINATION: General: He is awake and alert. He is in moderate distress secondary to left upper quadrant pain. Vital signs: Maximum temperature 103.1, blood pressure 129/73, pulse 116 and regular, respirations 20 per minute. HEENT: Sclerae anicteric. No conjunctival hemorrhages. Heart: Heart sounds S1, S2, tachycardic, no loud murmur. Lungs: Clear. Diminished breath sounds. Poor inspiratory effort secondary to left-sided abdominal pain. Abdomen: Soft. There is left upper quadrant tenderness to palpation. No mass, rebound, or rigidity. Extremities: Negative for edema. Skin: No infected skin wounds noted. IMPRESSION: 1. Staphylococcus bacteremia/sepsis. 2. 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 3. Splenic infarcts, probable septic emboli. 4. Splenic cyst, cannot rule out splenic abscess or infected cyst. Await culture results, repeat cultures have been obtained, continue empiric vancomycin and ceftriaxone, echocardiogram, HIV testing (patient consents). Further recommendations pending cultures. Will follow. Thank you for the kind referral. WOJCIECH DENNIS M.D. [id number]
[2016-12-04 09:23] LABS: BILIRUBIN,TOTAL 1.5 mg/dl (0.2-1.0)
[2016-12-04] MEDS: ONDANSETRON 4 MG/2 ML VIAL IVPB PRN ×2 (09:30→15:00)
--- NOTE | 2016-12-04 09:34 | PN ---
Progress Note, Physician History of Present Illness: Awake, responsive C/O LUQ abdominal pain No C/O N/V Febrile WBC 26.4 - Current Medication List Current Medications: Active Medications Docusate Sodium (Colace -) 100 mg PO TID [facility] Last Admin: 12/03/16 21:18 Dose: Not Given Enoxaparin Sodium (Lovenox -) 40 mg SQ DAILY [facility] Famotidine (Pepcid -) 20 mg PO BID [facility] Last Admin: 12/03/16 21:18 Dose: 20 mg Ceftriaxone Sodium (Rocephin 2gm Ivpb (Pre-Docked)) 100 mls @ 200 mls/hr IVPB DAILY [facility] Last Admin: 12/03/16 12:20 Dose: 200 mls/hr Vancomycin HCl (Vancomycin (Pre-Docked)) 250 mls @ 166.667 mls/hr IVPB Q12H [facility] Last Admin: 12/04/16 00:20 Dose: 166.667 mls/hr Potassium Chloride/Sodium Chloride (Ns+20 Meq Kcl -) 1,000 mls @ 100 mls/hr IV ASDIR [facility] Last Admin: 12/03/16 13:03 Dose: 100 mls/hr Morphine Sulfate (Morphine Injection -) 4 mg IVPUSH Q4H PRN PRN Reason: PAIN Last Admin: 12/04/16 03:20 Dose: 4 mg Potassium Phos/Sodium Phos (Phos-Nak Packet -) 1 packet PO BID [facility] Last Admin: 12/03/16 21:18 Dose: 1 packet - Objective Vital Signs: Vital Signs Temperature 100.3 F H 12/04/16 07:09 Pulse Rate 106 H 12/04/16 07:09 Respiratory Rate 18 12/04/16 07:09 Blood Pressure 132/85 12/04/16 07:09 O2 Sat by Pulse Oximetry (%) 93 L 12/03/16 22:20 Constitutional: Yes: No Distress Eyes: Yes: Conjunctiva Clear Cardiovascular: Yes: Regular Rate and Rhythm, S1, S2. No: Murmur Respiratory: Yes: CTA Bilaterally Gastrointestinal: Yes: Normal Bowel Sounds, Soft, Abdomen, Obese, Tenderness, Other (+ LUQ tenderness to palp) Edema: No Labs: CBC, BMP 12/04/16 07:00 12/04/16 07:00 INR, PTT INR 1.67 (0.82-1.09) H 12/03/16 07:30 Assessment/Plan Staph aureus bacteremia, unclear source Possible endocarditis Splenic infarcts secondary to septic emboli Splenic cyst, possible abscess Await final identification of blood isolate Echocardiogram Check repeat BC
[2016-12-04] MEDS ORDERED: ONDANSETRON 4 MG/2 ML VIAL ONE (09:50)
[2016-12-04] MEDS: CEFTRIAXONE 100 ML IVPB SCH (09:56)
[2016-12-04] MEDS: FAMOTIDINE 20 MG TABLET PO SCH (09:57)
[2016-12-04] MEDS: ENOXAPARIN NA (PORCINE) 40 MG/0.4 ML DISP.SYRIN SQ SCH (09:57)
[2016-12-04] MEDS: NAPH,MB-DB/K PH,MBDB POWDER PACKET PO SCH ×2 (09:59→21:59)
[2016-12-04] MEDS: SODIUM CHLORIDE 0.9%/KCL 1,000 ML IV SCH ×2 (10:00→22:40)
[2016-12-04] MEDS: DOCUSATE SODIUM 100 MG CAPSULE (FP) PO SCH ×3 (11:33→21:59)
[2016-12-04 12:54] LABS: ANISOCYTOSIS 1+; HYPOCHROMIA 1+; PLATELET ESTIMATE ADEQUATE (NORMAL); POLYCHROMASIA 1+; STOMATOCYTE 1+; TEAR DROP CELLS 1+
--- NOTE | 2016-12-04 13:10 | PN ---
Physical Exam: SUBJECTIVE: Patient seen and examined, reports feeling slightly improved, denies any chest pain OBJECTIVE: patient is a 26 y/o male with no significant past medical history admitted from the emergency department for sepsis, staph bacteremia Vital Signs Period Temp Pulse Resp BP Sys/Estrada Pulse Ox Last 24 Hr 98.7 F-103.2 F 105-116 16-20 127-142/71-85 92-93 physical examination GENERAL: The patient is awake, alert, and fully oriented, in no acute distress. HEAD: Normal with no signs of trauma. EYES: PERRL, extraocular movements intact, sclera anicteric, conjunctiva clear. No ptosis. ENT: Ears normal, nares patent, oropharynx clear without exudates, moist mucous membranes. NECK: Trachea midline, full range of motion, supple. LUNGS: Breath sounds equal, clear to auscultation bilaterally, no wheezes, no crackles, no accessory muscle use. HEART: Regular rate and rhythm, S1, S2 without murmur, rub or gallop. ABDOMEN: Soft, obese, left upper quadrant tenderness, normoactive bowel sounds, no guarding, no rebound, no hepatosplenomegaly, no masses. EXTREMITIES: 2+ pulses, warm, well-perfused, no edema. NEUROLOGICAL: Cranial nerves II through XII grossly intact. Normal speech, gait not observed. PSYCH: Normal mood, normal affect. SKIN: Warm, dry, normal turgor, no rashes or lesions noted Laboratory Results - last 24 hr 12/03/16 12/03/16 12/03/16 07:30 07:30 07:30 WBC RBC Hgb Hct MCV MCH MCHC RDW Plt Count MPV Neutrophils % Lymphocytes % Monocytes % Band Neutrophils Platelet Estimate Platelet Comment Polychromasia Hypochromic-Microcytic Anisocytosis Tear Drop Cells Stomatocytes Sodium Potassium Chloride Carbon Dioxide Anion Gap BUN Creatinine Creat Clearance w eGFR Random Glucose Calcium Phosphorus 2.3 L Magnesium 1.9 Total Bilirubin 1.1 H Cancelled Direct Bilirubin 0.4 H Cancelled AST 34 D Cancelled ALT 94 H D Cancelled Alkaline Phosphatase 98 H D Cancelled Creatine Kinase 56 Troponin I < 0.03 L Total Protein 6.0 L Cancelled Albumin 2.8 L Cancelled Total Amylase 56 Cancelled Lipase 22 Cancelled Opiates Screen Methadone Screen Barbiturate Screen Phencyclidine Screen Ur Amphetamines Screen MDMA (Ecstasy) Screen Benzodiazepines Screen Cocaine Screen U Marijuana (THC) Screen Hepatitis A IgM Ab Negative Hep Bs Antigen Negative Hep B Core IgM Ab Negative Hepatitis C Ab (EIA) <0.1 12/03/16 12/03/16 12/04/16 07:30 13:00 07:00 WBC 26.4 H D RBC 5.41 Hgb 15.2 D Hct 45.1 MCV 83.4 MCH 28.1 MCHC 33.7 RDW 14.1 Plt Count 335 MPV 9.2 Neutrophils % 72.0 Lymphocytes % 1.0 L D Monocytes % 11.0 H Band Neutrophils 16.0 H Platelet Estimate Adequate Platelet Comment Few large plts Polychromasia 1+ Hypochromic-Microcytic 1+ Anisocytosis 1+ Tear Drop Cells 1+ Stomatocytes 1+ Sodium Potassium Chloride Carbon Dioxide Anion Gap BUN Creatinine Creat Clearance w eGFR Random Glucose Calcium Phosphorus Cancelled Magnesium Cancelled Total Bilirubin Direct Bilirubin AST ALT Alkaline Phosphatase Creatine Kinase Troponin I Total Protein Albumin Total Amylase Lipase Opiates Screen Positive Methadone Screen Negative Barbiturate Screen Negative Phencyclidine Screen Negative Ur Amphetamines Screen Negative MDMA (Ecstasy) Screen Negative Benzodiazepines Screen Negative Cocaine Screen Negative U Marijuana (THC) Screen Negative Hepatitis A IgM Ab Hep Bs Antigen Hep B Core IgM Ab Hepatitis C Ab (EIA) 12/04/16 07:00 WBC RBC Hgb Hct MCV MCH MCHC RDW Plt Count MPV Neutrophils % Lymphocytes % Monocytes % Band Neutrophils Platelet Estimate Platelet Comment Polychromasia Hypochromic-Microcytic Anisocytosis Tear Drop Cells Stomatocytes Sodium 133 L Potassium 4.5 D Chloride 100 Carbon Dioxide 23 Anion Gap 10 BUN 10 D Creatinine 0.9 Creat Clearance w eGFR > 60 Random Glucose 155 H Calcium 8.2 L Phosphorus 2.6 Magnesium 2.4 D Total Bilirubin 1.5 H D Direct Bilirubin AST 27 D ALT 75 H D Alkaline Phosphatase 92 Creatine Kinase Troponin I Total Protein 6.3 L Albumin 2.6 L Total Amylase Lipase Opiates Screen Methadone Screen Barbiturate Screen Phencyclidine Screen Ur Amphetamines Screen MDMA (Ecstasy) Screen Benzodiazepines Screen Cocaine Screen U Marijuana (THC) Screen Hepatitis A IgM Ab Hep Bs Antigen Hep B Core IgM Ab Hepatitis C Ab (EIA) Active Medications Generic Name Dose Route Start Last Admin Trade Name Freq PRN Reason Stop Dose Admin Docusate Sodium 100 mg 12/03/16 14:00 12/04/16 11:33 Colace - PO Not Given TID [facility] Enoxaparin Sodium 40 mg 12/04/16 10:00 12/04/16 09:57 Lovenox - SQ 40 mg DAILY DARREL Administration Famotidine 20 mg 12/03/16 22:00 12/04/16 09:57 Pepcid - PO 20 mg BID DARREL Administration Ceftriaxone Sodium 100 mls @ 200 mls/hr 12/03/16 11:30 12/04/16 09:56 Rocephin 2gm Ivpb (Pre-Docked) IVPB 200 mls/hr DAILY DARREL Administration Vancomycin HCl 250 mls @ 166.667 mls/hr 12/03/16 12:00 12/04/16 12:06 Vancomycin (Pre-Docked) IVPB 166.667 mls/hr Q12H DARREL Administration Potassium Chloride/Sodium Chloride 1,000 mls @ 100 mls/hr 12/03/16 13:00 10:00 Ns+20 Meq Kcl - IV 100 mls/hr ASDIR DARREL Administration Morphine Sulfate 4 mg 12/02/16 20:58 12/04/16 03:20 Morphine Injection - IVPUSH 4 mg Q4H PRN Administration PAIN Ondansetron HCl 4 mg 12/04/16 11:07 Zofran Injection IVPB Q8H PRN NAUSEA Potassium Phos/Sodium Phos 1 packet 12/03/16 14:15 12/04/16 09:59 Phos-Nak Packet - PO 1 packet BID DARREL Administration Microbiology 12/03/16 12:26 Blood - Peripheral Venous Blood Culture - Preliminary Pending Organism 12/03/16 12:26 Blood - Peripheral Venous Blood Culture - Preliminary Pending Organism 12/02/16 14:10 Urine - Urine Clean Catch Urine Culture - Final NO GROWTH OBTAINED 12/02/16 17:33 Blood - Peripheral Venous Blood Culture - Preliminary Presumptive Mssa (Pbp2a Neg) 12/02/16 17:33 Blood - Peripheral Venous Blood Culture - Preliminary Presumptive Mssa (Pbp2a Neg) 12/02/16 12:50 Nasopharyngeal Swab Influenza Types A,B Antigen (DANGELO) - Final 12/02/16 12:50 Nasopharyngeal Swab - Final IMAGING ct abd/pelvis reviewed splenic infarct noted cta of chest: small to moderate left pleual effusion, nonspecific 4.7 x 1.7cm fluid collection ASSESSMENT/PLAN: 1) sepsis staph bacteremia vs septic embolic vs spleenic abscess - pending echo results - continue vanc and rocephin - ID consulted and following, Dr Caldwell spleenic abscess - continue vanc and rocephin - appreciate IR, Dr Francis input, for possible needle aspiration 2) gi transanimtis resolving, - monitor lft's, pending hepatitis panel negative 3) pulm hypoxia and pain upon inspiration improved - pending echo r/o pericardial effusion f/e/n - regular diet - replete potassium ppx - lovonex hold tomm dose for possible needle aspiration - oob - scd - pepcid dispo: requires inpatient telemetry Visit type - Emergency Visit Emergency Visit: Yes ED Registration Date: 12/02/16 Care time: The patient presented to the Emergency Department on the above date and was hospitalized for further evaluation of their emergent condition. - New Patient This patient is new to me today: No - Critical Care Critical Care patient: No - Discharge Referral Referred to [facility] Med P.C.: No
[2016-12-04] MEDS: LACTOBACILLUS ACIDOPHILUS 1 EACH TAB (FP) PO SCH (16:06)
[2016-12-04 19:29] LABS: INR 1.19 (0.82-1.09); PROTHROMBIN TIME (PATIENT) 13.3 SEC (10.2-13.0)
[2016-12-04] MEDS ORDERED: ONDANSETRON 4 MG/2 ML VIAL IVPUSH ONE (21:50)
[2016-12-04] MEDS ORDERED: ACETAMINOPHEN 325 MG TABLET (FP) PO ONE (21:50)
[2016-12-04] MEDS: RANITIDINE HCL 150 MG TABLET (FP) PO SCH (21:59)
[2016-12-04 23:54] LABS: HIV 1 & 2 AB NEGATIVE; HIV 1 AGp24 NEGATIVE
[2016-12-05] MEDS: DOCUSATE SODIUM 100 MG CAPSULE (FP) PO SCH ×3 (06:07→21:32)
[2016-12-05 08:41] LABS: BASOPHIL 0.4 % (0-2.0); MCH 27.2 pg (25.7-33.7); MCHC 32.6 g/dl (32.0-35.9); MEAN CELL VOLUME 83.5 fl (80-96); MEAN PLT VOLUME 8.2 fl (7.5-11.1); NEUTROPHILS 86.3 % (42.8-82.8); PLATELET COUNT 375 K/MM3 (134-434)
[2016-12-05 09:05] LABS: ALBUMIN 2.2 g/dl (3.4-5.0); ANION GAP 9 (8-16); CALCIUM 8.1 mg/dL (8.5-10.1); CO2 27 mmol/L (21-32); CREATININE 0.7 mg/dL (0.7-1.3); GLUCOSE,RANDOM 99 mg/dL (74-106); MAGNESIUM 2.6 mg/dL (1.8-2.4); PHOSPHOROUS 1.7 mg/dL (2.5-4.9); SGOT/AST 19 U/L (15-37); SGPT/ALT 54 U/L (12-78); TOT PROT 5.8 g/dl (6.4-8.2)
[2016-12-05 09:06] LABS: ALK PHOS 85 U/L (45-117)
[2016-12-05] MEDS ORDERED: CEFTRIAXONE 2 GM in DEXTROSE 5%-WATER 100 ML IVPB SCH (10:45)
[2016-12-05] MEDS ORDERED: DEXTROSE 5%-WATER 100 ML IVPB ONE (10:56)
[2016-12-05] MEDS: RANITIDINE HCL 150 MG TABLET (FP) PO SCH ×2 (10:59→21:14)
[2016-12-05] MEDS: LACTOBACILLUS ACIDOPHILUS 1 EACH TAB (FP) PO SCH (10:59)
[2016-12-05] MEDS: NAPH,MB-DB/K PH,MBDB POWDER PACKET PO SCH ×2 (10:59→21:14)
[2016-12-05] MEDS: SODIUM CHLORIDE 0.9%/KCL 1,000 ML IV SCH ×3 (11:02→23:30)
[2016-12-05] MEDS: CEFTRIAXONE 100 ML IVPB SCH (11:17)
--- NOTE | 2016-12-05 11:57 | PN ---
Progress Note (short form) - Note Progress Note: s/p IR Drainage of spleen- he has a drain with blood tinged purulent material- he is comfortable- has pain at the catheter site echo without gross vegetation Vital Signs Period Temp Pulse Resp BP Sys/Estrada Pulse Ox Last 24 Hr 98.2 F-100.0 F 96-128 18-24 127-147/77-89 96-100 no conjunctival hemorrhages cor-rrr lungs clear abd firm, nt +LUQ drain ext no edema no rash CBC, BMP 12/05/16 08:24 12/05/16 08:24 Microbiology 12/02/16 17:33 Blood - Peripheral Venous Blood Culture - Final Staphylococcus Aureus 12/02/16 17:33 Blood - Peripheral Venous Blood Culture - Final Staphylococcus Aureus 12/03/16 12:26 Blood - Peripheral Venous Blood Culture - Preliminary Staphylococcus Latex Coag Pos 12/03/16 12:26 Blood - Peripheral Venous Blood Culture - Preliminary Staphylococcus Latex Coag Pos 12/02/16 14:10 Urine - Urine Clean Catch Urine Culture - Final NO GROWTH OBTAINED 12/02/16 12:50 Nasopharyngeal Swab Influenza Types A,B Antigen (DANGELO) - Final 12/02/16 12:50 Nasopharyngeal Swab - Final meds reviewed Laboratory Tests 12/04/16 07:00 HIV 1&2 Antibody Screen Negative HIV P24 Antigen Negative a/p MSSA bacteremia probable MSSA endocarditis s/p splenic abscess drainage 12/05 will switch to nafcillin esr/crp EMILY repeat blood cultures pending will order quantitative immunoglobulins d/w Dr Caldwell d/w hospitalist
[2016-12-05] MEDS: morphine CARPU-JECT 4 MG/1 ML DISP.SYRIN IVPUSH PRN ×2 (12:35→18:00)
--- NOTE | 2016-12-05 13:48 | PN ---
Progress Note (short form) - Note Progress Note: Subjective: The patient was seen and examined at the bedside, he is post IR with splenic drainage and COLLIN drain in place. He has complaints of gas Current Medications Generic Name Dose Route Start Last Admin Trade Name Freq PRN Reason Stop Dose Admin Acetaminophen 650 mg 12/05/16 08:42 Tylenol - PO Q4H PRN FEVER OR PAIN Docusate Sodium 100 mg 12/03/16 14:00 12/05/16 06:07 Colace - PO Not Given TID DARREL Enoxaparin Sodium 40 mg 12/04/16 10:00 12/04/16 09:57 Lovenox - SQ 40 mg DAILY DARREL Administration Potassium Chloride/Sodium Chloride 1,000 mls @ 100 mls/hr 12/03/16 13:00 11:02 Ns+20 Meq Kcl - IV 100 mls/hr ASDIR DARREL Administration Nafcillin Sodium 2 gm/ 100 mls @ 100 mls/hr 12/05/16 14:00 Dextrose IVPB Q4H-IV DARREL Protocol Lactobacillus Acidophilus 1 tab 12/04/16 15:30 12/05/16 10:59 Bacid - PO 1 tab DAILY DARREL Administration Morphine Sulfate 4 mg 12/02/16 20:58 12/05/16 12:35 Morphine Injection - IVPUSH 4 mg Q4H PRN Administration PAIN Ondansetron HCl 4 mg 12/04/16 11:07 12/04/16 15:00 Zofran Injection IVPB 4 mg Q8H PRN Administration NAUSEA Potassium Phos/Sodium Phos 1 packet 12/03/16 14:15 12/05/16 10:59 Phos-Nak Packet - PO 1 packet BID DARREL Administration Ranitidine HCl 150 mg 12/04/16 22:00 12/05/16 10:59 Zantac - PO 150 mg BID DARREL Administration Objective: Vital Signs Period Temp Pulse Resp BP Sys/Estrada Pulse Ox Last 24 Hr 98.2 F-100.0 F 96-128 18-24 127-147/78-89 96-100 Physical Exam: General: NAD, A&Ox3 Lungs: CTA bilaterally Heart: RRR, S1S2 Abd: LUQ with drain, tender. Normoactive bowel sounds Ext: Warm, well-perfused. 2+ DP/PT bilaterally Neuro: No focal deficits CBCD WBC 23.0 K/mm3 (4.0-10.0) H 12/05/16 08:24 RBC 4.51 M/mm3 (4.00-5.60) 12/05/16 08:24 Hgb 12.3 GM/dL (11.7-16.9) 12/05/16 08:24 Hct 37.7 % (35.4-49) 12/05/16 08:24 MCV 83.5 fl (80-96) 12/05/16 08:24 MCHC 32.6 g/dl (32.0-35.9) 12/05/16 08:24 RDW 15.0 % (11.9-15.9) 12/05/16 08:24 Plt Count 375 K/MM3 (134-434) 12/05/16 08:24 MPV 8.2 fl (7.5-11.1) 12/05/16 08:24 CMP Sodium 138 mmol/L (136-145) 12/05/16 08:24 Potassium 4.2 mmol/L (3.5-5.1) 12/05/16 08:24 Chloride 102 mmol/L (98-107) 12/05/16 08:24 Carbon Dioxide 27 mmol/L (21-32) 12/05/16 08:24 Anion Gap 9 (8-16) 12/05/16 08:24 BUN 9 mg/dL (7-18) 12/05/16 08:24 Creatinine 0.7 mg/dL (0.7-1.3) 12/05/16 08:24 Creat Clearance w eGFR > 60 (>60) 12/05/16 08:24 Random Glucose 99 mg/dL (74-106) 12/05/16 08:24 Calcium 8.1 mg/dL (8.5-10.1) L 12/05/16 08:24 Total Bilirubin 1.0 mg/dL (0.2-1.0) 12/05/16 08:24 AST 19 U/L (15-37) 12/05/16 08:24 ALT 54 U/L (12-78) 12/05/16 08:24 Alkaline Phosphatase 85 U/L (45-117) 12/05/16 08:24 Total Protein 5.8 g/dl (6.4-8.2) L 12/05/16 08:24 Albumin 2.2 g/dl (3.4-5.0) L 12/05/16 08:24 CARDIAC ENZYMES Creatine Kinase 56 IU/L (39-308) 12/03/16 07:30 Troponin I < 0.03 ng/ml (0.03-0.50) L 12/03/16 07:30 Microbiology 12/02/16 17:33 Blood - Peripheral Venous Blood Culture - Final Staphylococcus Aureus 12/02/16 17:33 Blood - Peripheral Venous Blood Culture - Final Staphylococcus Aureus 12/03/16 12:26 Blood - Peripheral Venous Blood Culture - Preliminary Staphylococcus Latex Coag Pos 12/03/16 12:26 Blood - Peripheral Venous Blood Culture - Preliminary Staphylococcus Latex Coag Pos 12/02/16 14:10 Urine - Urine Clean Catch Urine Culture - Final NO GROWTH OBTAINED 12/02/16 12:50 Nasopharyngeal Swab Influenza Types A,B Antigen (DANGELO) - Final 12/02/16 12:50 Nasopharyngeal Swab - Final Assessment: This is a 26 year old male with no significant PMHx who presented to the ED with abdominal pain, nausea, vomiting, fever, chills, sweats. Plan: 1) ID: Sepsis 2/2 MSSA bacteremia - Repeat blood cultures sent today, f/u - Abx switched to Nafcillin today - TTE with no obvious vegetation - F/u cardiology consult for EMILY to r/o endocarditis - F/u ESR - F/u CRP - F/u quantitative immunoglobulins - Appreciate ID consult Splenic abscess s/p drainage on 12/05 - Monitor drainage - F/u abscess culture 2) F/E/N: - Regular diet - Monitor electrolytes - Hypophosphatemia: replete 3) Prophylaxis: - SCDs bilaterally - Hold chemical DVT prophylaxis until cleared by IR to restart 4) Dispo: - Requires continued inpatient care CODE STATUS: FULL CODE Visit type - Emergency Visit Emergency Visit: Yes ED Registration Date: 12/02/16 Care time: The patient presented to the Emergency Department on the above date and was hospitalized for further evaluation of their emergent condition. - New Patient This patient is new to me today: Yes Date on this admission: 12/05/16 - Critical Care Critical Care patient: No
[2016-12-05] MEDS ORDERED: PT OWN MED DRAWER 7, Y5N ONE ×2 (14:08→21:13)
[2016-12-05] MEDS: NAFCILLIN - 2 GM in DEXTROSE 5%-WATER - 100 ML IVPB SCH ×3 (14:11→21:14)
[2016-12-05] MEDS: ACETAMINOPHEN 325 MG TABLET (FP) PO PRN ×2 (14:12→18:30)
[2016-12-05] MEDS: SIMETHICONE 80 MG TAB.CHEW (FP) PO PRN ×2 (14:30→21:22)
--- NOTE | 2016-12-05 15:29 | CON.CARD ---
Consult Consult Specialty:: Cardiology - History of Present Illness Chief Complaint: Fevers. Body aches History of Present Illness: This is a 26 year old male with who presents with fevers, epigastric pain, body aches, and was noted to have a splenic abcess. His WBC was 23. Chest CT was negative for a PE. EKG showed sinus tachycardia at 110 BPM with normal intervals , normal axis, and NSSTTW changes. He had IR drainage of his spleen. Blood cultures were positive for Staph Aureus. Echocardiogram 12/03/16 showed an EF of 59%, normal LV size and functon and normal RV size and function. No vegetations seen. - Alcohol/Substance Use Hx Alcohol Use: Yes - Smoking History Smoking history: Never smoked Have you smoked in the past 12 months: No Aproximately how many cigarettes per day: 0 Home Medications - Allergies Allergies/Adverse Reactions: Allergies Allergy/AdvReac Type Severity Reaction Status Date / Time No Known Allergies Allergy Verified 12/02/16 13:59 - Home Medications Home Medications: Ambulatory Orders NK [No Known Home Medication] 12/02/16 Review of Systems Unable to obtain ROS, reason: As per HPI Vital Signs: Vital Signs Temperature 100.3 F H 12/05/16 14:00 Pulse Rate 120 H 12/05/16 14:00 Respiratory Rate 24 12/05/16 14:00 Blood Pressure 129/73 12/05/16 14:00 O2 Sat by Pulse Oximetry (%) 100 12/05/16 10:16 Constitutional: Yes: Other (Ill appearing) Neck: Yes: WNL Respiratory: Yes: CTA Bilaterally Gastrointestinal: Yes: Soft Cardiovascular: Yes: Regular Rate and Rhythm JVD: No Heart Sounds: Yes: S1, S2 (Tachycardiac) Extremities: Yes: WNL Edema: No Neurological: Yes: WNL Psychiatric: Yes: WNL - Other Data Labs, Other Data: CBC, BMP 12/05/16 08:24 12/05/16 08:24 INR, PTT INR 1.19 (0.82-1.09) 12/04/16 13:01 Assessment/Plan This is a 26 year old male with who presents with fevers, epigastric pain, body aches, and was noted to have a splenic abcess. His WBC was 23. Chest CT was negative for a PE. EKG showed sinus tachycardia at 110 BPM with normal intervals , normal axis, and NSSTTW changes. He had IR drainage of his spleen. Blood cultures were positive for Staph Aureus. Echocardiogram 12/03/16 showed an EF of 59%, normal LV size and function and normal RV size and function. No vegetations seen. ABX as per medicine team and ID Monitor blood cultures Plan for a EMILY
[2016-12-06] MEDS: ACETAMINOPHEN 325 MG TABLET (FP) PO PRN (00:44)
[2016-12-06] MEDS: NAFCILLIN - 2 GM in DEXTROSE 5%-WATER - 100 ML IVPB SCH ×6 (02:32→21:33)
[2016-12-06] MEDS ORDERED: PT OWN MED DRAWER 7, Y5N ONE ×2 (05:56→20:51)
[2016-12-06] MEDS: DOCUSATE SODIUM 100 MG CAPSULE (FP) PO SCH ×3 (05:57→21:34)
[2016-12-06 07:38] LABS: MCH 27.4 pg (25.7-33.7); MCHC 32.5 g/dl (32.0-35.9); MEAN CELL VOLUME 84.2 fl (80-96); MEAN PLT VOLUME 8.1 fl (7.5-11.1); PLATELET COUNT 434 K/MM3 (134-434); RDW 15.2 % (11.9-15.9); WHITE BLOOD COUNT 20.9 K/mm3 (4.0-10.0)
[2016-12-06 08:15] LABS: ALK PHOS 98 U/L (45-117); ANION GAP 8 (8-16); BILIRUBIN,TOTAL 2.2 mg/dL (0.2-1.0); CO2 27 mmol/L (21-32); CREATININE 0.8 mg/dL (0.7-1.3); GLUCOSE,RANDOM 95 mg/dL (74-106); MAGNESIUM 2.6 mg/dL (1.8-2.4); PHOSPHOROUS 3.4 mg/dL (2.5-4.9); SGOT/AST 33 U/L (15-37); SGPT/ALT 56 U/L (12-78); TOT PROT 5.4 g/dl (6.4-8.2)
[2016-12-06] MEDS: morphine CARPU-JECT 4 MG/1 ML DISP.SYRIN IVPUSH PRN ×2 (08:29→13:15)
[2016-12-06 08:46] LABS: C-REACTIVE PROTEIN 28.1 MG/DL (0.00-0.3)
--- NOTE | 2016-12-06 08:56 | PN ---
Progress Note (short form) - Note Progress Note: Subjective: The patient was seen and examined at the bedside, he just received Morphine so he is stating he is "feeling good" Current Medications Generic Name Dose Route Start Last Admin Trade Name Lisa PRN Reason Stop Dose Admin Acetaminophen 650 mg 12/05/16 08:42 12/06/16 00:44 Tylenol - PO 650 mg Q4H PRN Administration FEVER OR PAIN Docusate Sodium 100 mg 12/03/16 14:00 12/06/16 05:57 Colace - PO Not Given TID DARREL Enoxaparin Sodium 40 mg 12/04/16 10:00 12/04/16 09:57 Lovenox - SQ 40 mg DAILY DARREL Administration Potassium Chloride/Sodium Chloride 1,000 mls @ 100 mls/hr 12/03/16 13:00 23:30 Ns+20 Meq Kcl - IV 100 mls/hr ASDIR DARREL Administration Nafcillin Sodium 2 gm/ 100 mls @ 100 mls/hr 12/05/16 14:00 12/06/16 05:57 Dextrose IVPB 100 mls/hr Q4H-IV DARREL Administration Protocol Lactobacillus Acidophilus 1 tab 12/04/16 15:30 12/05/16 10:59 Bacid - PO 1 tab DAILY DARREL Administration Morphine Sulfate 2 mg 12/06/16 08:55 Morphine Injection - IVPUSH Q4H PRN PAIN Ondansetron HCl 4 mg 12/04/16 11:07 12/04/16 15:00 Zofran Injection IVPB 4 mg Q8H PRN Administration NAUSEA Ranitidine HCl 150 mg 12/04/16 22:00 12/05/16 21:14 Zantac - PO 150 mg BID DARREL Administration Simethicone 80 mg 12/05/16 14:15 12/05/16 21:22 Mylicon - PO 80 mg QID PRN Administration GAS Objective: Vital Signs Period Temp Pulse Resp BP Sys/Estrada Pulse Ox Last 24 Hr 98.9 F-102 F 88-120 18-24 111-146/59-89 98-100 Physical Exam: General: NAD, A&Ox3 Lungs: CTA bilaterally Heart: RRR, S1S2 Abd: LUQ with drain, tender. Normoactive bowel sounds Ext: Warm, well-perfused. 2+ DP/PT bilaterally Neuro: No focal deficits CBCD WBC 20.9 K/mm3 (4.0-10.0) H 12/06/16 07:29 RBC 4.60 M/mm3 (4.00-5.60) 12/06/16 07:29 Hgb 12.6 GM/dL (11.7-16.9) 12/06/16 07:29 Hct 38.7 % (35.4-49) 12/06/16 07:29 MCV 84.2 fl (80-96) 12/06/16 07:29 MCHC 32.5 g/dl (32.0-35.9) 12/06/16 07:29 RDW 15.2 % (11.9-15.9) 12/06/16 07:29 Plt Count 434 K/MM3 (134-434) 12/06/16 07:29 MPV 8.1 fl (7.5-11.1) 12/06/16 07:29 CMP Sodium 138 mmol/L (136-145) 12/06/16 07:29 Potassium 4.4 mmol/L (3.5-5.1) 12/06/16 07:29 Chloride 103 mmol/L (98-107) 12/06/16 07:29 Carbon Dioxide 27 mmol/L (21-32) 12/06/16 07:29 Anion Gap 8 (8-16) 12/06/16 07:29 BUN 9 mg/dL (7-18) 12/06/16 07:29 Creatinine 0.8 mg/dL (0.7-1.3) 12/06/16 07:29 Creat Clearance w eGFR > 60 (>60) 12/06/16 07:29 Random Glucose 95 mg/dL (74-106) 12/06/16 07:29 Calcium 8.0 mg/dL (8.5-10.1) L 12/06/16 07:29 Total Bilirubin 2.2 mg/dL (0.2-1.0) H D 12/06/16 07:29 AST 33 U/L (15-37) D 12/06/16 07:29 ALT 56 U/L (12-78) 12/06/16 07:29 Alkaline Phosphatase 98 U/L (45-117) 12/06/16 07:29 Total Protein 5.4 g/dl (6.4-8.2) L 12/06/16 07:29 Albumin 2.0 g/dl (3.4-5.0) L 12/06/16 07:29 CARDIAC ENZYMES Creatine Kinase 56 IU/L (39-308) 12/03/16 07:30 Troponin I < 0.03 ng/ml (0.03-0.50) L 12/03/16 07:30 Microbiology 12/05/16 08:24 Blood - Peripheral Venous Blood Culture - Preliminary NO GROWTH OBTAINED AFTER 24 HOURS, INCUBATION TO CONTINUE FOR 4 DAYS. 12/05/16 08:24 Blood - Peripheral Venous Blood Culture - Preliminary NO GROWTH OBTAINED AFTER 24 HOURS, INCUBATION TO CONTINUE FOR 4 DAYS. 12/05/16 10:35 Abscess Gram Stain - Final 12/02/16 17:33 Blood - Peripheral Venous Blood Culture - Final Staphylococcus Aureus 12/02/16 17:33 Blood - Peripheral Venous Blood Culture - Final Staphylococcus Aureus 12/03/16 12:26 Blood - Peripheral Venous Blood Culture - Preliminary Staphylococcus Latex Coag Pos 12/03/16 12:26 Blood - Peripheral Venous Blood Culture - Preliminary Staphylococcus Latex Coag Pos 12/02/16 14:10 Urine - Urine Clean Catch Urine Culture - Final NO GROWTH OBTAINED 12/02/16 12:50 Nasopharyngeal Swab Influenza Types A,B Antigen (DANGELO) - Final 12/02/16 12:50 Nasopharyngeal Swab - Final Assessment: This is a 26 year old male with no significant PMHx who presented to the ED with abdominal pain, nausea, vomiting, fever, chills, sweats. Plan: 1) ID: Sepsis 2/2 MSSA bacteremia - Tmax 102 - Continue Nafcillin (12/05- ) - TTE with no obvious vegetation - F/u ESR - F/u CRP - F/u quantitative immunoglobulins - Per cards consult, will schedule EMILY to r/o endocarditis - Appreciate ID consult Splenic abscess s/p drainage on 12/05 - Monitor drainage: 140ml on 12/05 - F/u abscess culture 2) F/E/N: - Regular diet - Monitor electrolytes - Hypophosphatemia: resolved 3) Prophylaxis: - SCDs bilaterally - Start Lovenox today 4) Dispo: - Requires continued inpatient care CODE STATUS: FULL CODE Visit type - Emergency Visit Emergency Visit: Yes ED Registration Date: 12/02/16 Care time: The patient presented to the Emergency Department on the above date and was hospitalized for further evaluation of their emergent condition. - New Patient This patient is new to me today: No - Critical Care Critical Care patient: No
[2016-12-06 09:04] LABS: METAMYELOCYTE 1 % (0-2); PLATELET ESTIMATE INCREASED (NORMAL)
[2016-12-06] MEDS: ENOXAPARIN NA (PORCINE) 40 MG/0.4 ML DISP.SYRIN SQ SCH (09:57)
[2016-12-06] MEDS: LACTOBACILLUS ACIDOPHILUS 1 EACH TAB (FP) PO SCH (09:59)
[2016-12-06] MEDS: RANITIDINE HCL 150 MG TABLET (FP) PO SCH ×2 (10:00→21:34)
--- NOTE | 2016-12-06 11:28 | PN ---
Progress Note, Physician Chief Complaint: ID Nafcillin Complains of pain catheter site - Current Medication List Current Medications: Active Medications Acetaminophen (Tylenol -) 650 mg PO Q4H PRN PRN Reason: FEVER OR PAIN Last Admin: 12/06/16 00:44 Dose: 650 mg Docusate Sodium (Colace -) 100 mg PO TID [facility] Last Admin: 12/06/16 05:57 Dose: Not Given Enoxaparin Sodium (Lovenox -) 40 mg SQ DAILY [facility] Last Admin: 12/06/16 09:57 Dose: Not Given Potassium Chloride/Sodium Chloride (Ns+20 Meq Kcl -) 1,000 mls @ 100 mls/hr IV ASDIR [facility] Last Admin: 12/05/16 23:30 Dose: 100 mls/hr Nafcillin Sodium 2 gm/ (Dextrose) 100 mls @ 100 mls/hr IVPB Q4H-IV DARREL PRN Reason: Protocol Last Admin: 12/06/16 09:59 Dose: 100 mls/hr Lactobacillus Acidophilus (Bacid -) 1 tab PO DAILY [facility] Last Admin: 12/06/16 09:59 Dose: 1 tab Morphine Sulfate (Morphine Injection -) 2 mg IVPUSH Q4H PRN PRN Reason: PAIN Ondansetron HCl (Zofran Injection) 4 mg IVPB Q8H PRN PRN Reason: NAUSEA Last Admin: 12/04/16 15:00 Dose: 4 mg Ranitidine HCl (Zantac -) 150 mg PO BID [facility] Last Admin: 12/06/16 10:00 Dose: 150 mg Simethicone (Mylicon -) 80 mg PO QID PRN PRN Reason: GAS Last Admin: 12/05/16 21:22 Dose: 80 mg - Objective Vital Signs: Vital Signs Temperature 99.6 F 12/06/16 08:31 Pulse Rate 88 12/06/16 06:05 Respiratory Rate 20 12/06/16 06:05 Blood Pressure 126/67 12/06/16 06:05 O2 Sat by Pulse Oximetry (%) 100 12/05/16 20:07 Cardiovascular: Yes: Regular Rate and Rhythm, S1, S2 Respiratory: Yes: WNL, Regular, CTA Bilaterally Gastrointestinal: Yes: WNL, Normal Bowel Sounds, Soft. No: Tenderness Edema: No Labs: CBC, BMP 12/06/16 07:29 12/06/16 07:29 INR, PTT INR 1.19 (0.82-1.09) 12/04/16 13:01 Assessment/Plan Microbiology 12/05/16 10:35 Abscess Gram Stain - Final 12/02/16 17:33 Blood - Peripheral Venous Blood Culture - Final Staphylococcus Aureus 12/02/16 17:33 Blood - Peripheral Venous Blood Culture - Final Staphylococcus Aureus 12/03/16 12:26 Blood - Peripheral Venous Blood Culture - Preliminary Staphylococcus Latex Coag Pos 12/03/16 12:26 Blood - Peripheral Venous Blood Culture - Preliminary Staphylococcus Latex Coag Pos Laboratory Tests 12/06/16 12/06/16 12/06/16 07:29 07:29 07:29 WBC 20.9 H Hgb 12.6 Plt Count 434 ESR 50 H Total Bilirubin 2.2 H D Alkaline Phosphatase 98 C-Reactive Protein 28.1 H Total Protein 5.4 L Albumin 2.0 L Assessment MSSA bacteremia unknown source with splenic abscesses with drain in place Plan Continue current therapy Zana MCCONNELL
[2016-12-06] MEDS: SIMETHICONE 80 MG TAB.CHEW (FP) PO PRN ×2 (12:09→21:38)
[2016-12-06] MEDS: SODIUM CHLORIDE 0.9%/KCL 1,000 ML IV SCH (13:21)
--- NOTE | 2016-12-06 15:44 | PN ---
Progress Note, Physician Chief Complaint: Resting Comfortably History of Present Illness: This is a 26 year old male with who presents with fevers, epigastric pain, body aches, and was noted to have a splenic abcess. His WBC was 23. Chest CT was negative for a PE. EKG showed sinus tachycardia at 110 BPM with normal intervals , normal axis, and NSSTTW changes. He had IR drainage of his spleen. Blood cultures were positive for Staph Aureus. Echocardiogram 12/03/16 showed an EF of 59%, normal LV size and functon and normal RV size and function. No vegetations seen. - Current Medication List Current Medications: Active Medications Docusate Sodium (Colace -) 100 mg PO TID [facility] Last Admin: 12/06/16 13:15 Dose: Not Given Enoxaparin Sodium (Lovenox -) 40 mg SQ DAILY [facility] Last Admin: 12/06/16 09:57 Dose: Not Given Potassium Chloride/Sodium Chloride (Ns+20 Meq Kcl -) 1,000 mls @ 100 mls/hr IV ASDIR [facility] Last Admin: 12/06/16 13:21 Dose: 100 mls/hr Nafcillin Sodium 2 gm/ (Dextrose) 100 mls @ 100 mls/hr IVPB Q4H-IV [facility]ARREL PRN Reason: Protocol Last Admin: 12/06/16 09:59 Dose: 100 mls/hr Lactobacillus Acidophilus (Bacid -) 1 tab PO DAILY [facility] Last Admin: 12/06/16 09:59 Dose: 1 tab Morphine Sulfate (Morphine Injection -) 2 mg IVPUSH Q4H PRN PRN Reason: PAIN Last Admin: 12/06/16 13:15 Dose: 2 mg Ondansetron HCl (Zofran Injection) 4 mg IVPB Q8H PRN PRN Reason: NAUSEA Last Admin: 12/04/16 15:00 Dose: 4 mg Ranitidine HCl (Zantac -) 150 mg PO BID [facility] Last Admin: 12/06/16 10:00 Dose: 150 mg Simethicone (Mylicon -) 80 mg PO QID PRN PRN Reason: GAS Last Admin: 12/06/16 12:09 Dose: 80 mg - Objective Vital Signs: Vital Signs Temperature 100.9 F H 12/06/16 14:00 Pulse Rate 123 H 12/06/16 14:00 Respiratory Rate 22 12/06/16 14:00 Blood Pressure 138/91 12/06/16 14:00 O2 Sat by Pulse Oximetry (%) 100 12/06/16 09:00 Constitutional: Yes: Other (Ill appearing) Neck: Yes: WNL Cardiovascular: Yes: Regular Rate and Rhythm, S1, S2 (No MRHG) Respiratory: Yes: CTA Bilaterally Gastrointestinal: Yes: Soft Extremities: Yes: WNL Edema: No Neurological: Yes: Alert, Oriented Psychiatric: Yes: WNL Labs: CBC, BMP 12/06/16 07:29 12/06/16 07:29 INR, PTT INR 1.19 (0.82-1.09) 12/04/16 13:01 Assessment/Plan This is a 26 year old male with who presents with fevers, epigastric pain, body aches, and was noted to have a splenic abcess. His WBC was 23. Chest CT was negative for a PE. EKG showed sinus tachycardia at 110 BPM with normal intervals , normal axis, and NSSTTW changes. He had IR drainage of his spleen. Blood cultures were positive for Staph Aureus. Echocardiogram 12/03/16 showed an EF of 59%, normal LV size and function and normal RV size and function. No vegetations seen. ABX as per medicine team and ID Monitor blood cultures Plan for a EMILY
--- NOTE | 2016-12-06 16:35 | PATH ---
Cytology Non-Gynecological Report Patient Name: CAM RODRIGUEZ Med. Rec. #: [id number] /Age/Gender: 1990 (Age: 26) / M Account: [id number] Location: [address] [place] [address]/[facility] Taken: 12/05/2016 Received: 12/05/2016 Reported: 12/06/2016 Physicians: Roger Perry M.D. Specimen(s) Received SPLENIC ABSCESS Clinical History Splenic abscess Final Diagnosis SPLENIC ABSCESS, ASPIRATION: SATISFACTORY FOR EVALUATION BENIGN (NO MALIGNANT CELLS IDENTIFIED) NEUTROPHILS AND DEBRIS CONSISTENT WITH ABSCESS CONTENTS. Comment: Recommend correlation with clinical findings and follow up as clinically indicated. Electronically Signed Taye Mack M.D. Gross Description Approximately 50 cc of dark brown fluid received fixed in 50% alcohol. One cytofunnel and one cellblock prepared.
[2016-12-07] MEDS: SODIUM CHLORIDE 0.9%/KCL 1,000 ML IV SCH ×2 (00:50→14:39)
[2016-12-07] MEDS: NAFCILLIN - 2 GM in DEXTROSE 5%-WATER - 100 ML IVPB SCH ×6 (01:19→23:21)
[2016-12-07] MEDS: DOCUSATE SODIUM 100 MG CAPSULE (FP) PO SCH ×3 (05:39→23:20)
[2016-12-07 07:25] LABS: ALBUMIN 1.9 g/dl (3.4-5.0); ANION GAP 9 (8-16); CALCIUM 7.7 mg/dL (8.5-10.1); CO2 29 mmol/L (21-32); EOSINOPHIL 0.1 % (0-4.5); GLUCOSE,RANDOM 144 mg/dL (74-106); MCH 27.2 pg (25.7-33.7); MCHC 32.5 g/dl (32.0-35.9); MEAN CELL VOLUME 83.6 fl (80-96); MEAN PLT VOLUME 7.8 fl (7.5-11.1); NEUTROPHILS 85.4 % (42.8-82.8); PLATELET COUNT 497 K/MM3 (134-434); RDW 15.3 % (11.9-15.9); WHITE BLOOD COUNT 24.5 K/mm3 (4.0-10.0)
[2016-12-07 07:29] LABS: ALK PHOS 88 U/L (45-117); BILIRUBIN,TOTAL 2.2 mg/dL (0.2-1.0); CREATININE 0.9 mg/dL (0.7-1.3); SGOT/AST 42 U/L (15-37); SGPT/ALT 64 U/L (12-78); TOT PROT 5.4 g/dl (6.4-8.2)
[2016-12-07] MEDS: morphine CARPU-JECT 4 MG/1 ML DISP.SYRIN IVPUSH PRN ×2 (07:51→12:30)
[2016-12-07] MEDS: ENOXAPARIN NA (PORCINE) 40 MG/0.4 ML DISP.SYRIN SQ SCH (09:38)
[2016-12-07] MEDS: LACTOBACILLUS ACIDOPHILUS 1 EACH TAB (FP) PO SCH (09:38)
[2016-12-07] MEDS: SIMETHICONE 80 MG TAB.CHEW (FP) PO PRN (09:38)
[2016-12-07] MEDS: RANITIDINE HCL 150 MG TABLET (FP) PO SCH ×2 (09:38→23:20)
--- NOTE | 2016-12-07 12:26 | PN ---
Physical Exam: SUBJECTIVE: Patient seen and examined at bedside. Answered questions about his lifestyle. Takes classes at [employer], works as a bilingual administrative assistant, plays video games, and works out at gym. Lifts weights. Denies performance enhancing meds, denies ever injecting illicit substances. Has stretch harris on both upper arms and abdomen, explains he "used to be bigger." OBJECTIVE: Vital Signs Period Temp Pulse Resp BP Sys/Estrada Pulse Ox Last 24 Hr 100.8 F-101.4 F 92-147 20-22 132-141/77-91 100 GENERAL: The patient is awake, alert, and fully oriented, in no acute distress. HEAD: Normal with no signs of trauma. EYES: PERRL, extraocular movements intact, sclera anicteric, conjunctiva clear. No ptosis. LUNGS: Breath sounds equal, clear to auscultation bilaterally, no wheezes, no crackles, no accessory muscle use. HEART: Regular rate and rhythm, S1, S2 without murmur, rub or gallop. ABDOMEN: Soft, obese; mild epigastric and LUQ tenderness, hypoactive bowel sounds EXTREMITIES: 2+ pulses, warm, well-perfused, no edema. NEUROLOGICAL: Cranial nerves II through XII grossly intact. Normal speech, gait not observed. SKIN: Stretch harris bilateral upper biceps, abdomen Laboratory Results - last 24 hr 12/07/16 12/07/16 06:05 06:05 WBC 24.5 H RBC 4.26 Hgb 11.6 L Hct 35.6 MCV 83.6 MCH 27.2 MCHC 32.5 RDW 15.3 Plt Count 497 H MPV 7.8 Neutrophils % 85.4 H Lymphocytes % 6.3 L D Monocytes % 8.2 Eosinophils % 0.1 D Basophils % 0.0 Sodium 138 Potassium 3.8 Chloride 100 Carbon Dioxide 29 Anion Gap 9 BUN 9 Creatinine 0.9 Creat Clearance w eGFR > 60 Random Glucose 144 H D Calcium 7.7 L Total Bilirubin 2.2 H AST 42 H D ALT 64 Alkaline Phosphatase 88 Total Protein 5.4 L Albumin 1.9 L Active Medications Generic Name Dose Route Start Last Admin Trade Name Freq PRN Reason Stop Dose Admin Docusate Sodium 100 mg 12/03/16 14:00 12/07/16 05:39 Colace - PO 100 mg TID DARREL Administration Enoxaparin Sodium 40 mg 12/04/16 10:00 08/11/17 09:38 Lovenox - SQ 40 mg DAILY [facility]REL Administration Potassium Chloride/Sodium Chloride 1,000 mls @ 100 mls/hr 12/03/16 13:00 00:50 Ns+20 Meq Kcl - IV 100 mls/hr ASDIR [facility] Administration Nafcillin Sodium 2 gm/ 100 mls @ 100 mls/hr 12/05/16 14:00 12/07/16 09:38 Dextrose IVPB 100 mls/hr Q4H-IV DARREL Administration Protocol Lactobacillus Acidophilus 1 tab 12/04/16 15:30 12/07/16 09:38 Bacid - PO 1 tab DAILY [facility] Administration Morphine Sulfate 2 mg 12/06/16 08:55 12/07/16 07:51 Morphine Injection - IVPUSH 2 mg Q4H PRN Administration PAIN Ondansetron HCl 4 mg 12/04/16 11:07 12/04/16 15:00 Zofran Injection IVPB 4 mg Q8H PRN Administration NAUSEA Ranitidine HCl 150 mg 12/04/16 22:00 12/07/16 09:38 Zantac - PO 150 mg BID [facility]ARREL Administration Simethicone 80 mg 12/05/16 14:15 12/07/16 09:38 Mylicon - PO 80 mg QID PRN Administration GAS ASSESSMENT/PLAN: 26 year-old male with no significant PMH admitted for splenic abscess and MSSA bacteremia. 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 Full Code. Visit type - Emergency Visit Emergency Visit: Yes ED Registration Date: 12/02/16 Care time: The patient presented to the Emergency Department on the above date and was hospitalized for further evaluation of their emergent condition. - New Patient This patient is new to me today: Yes Date on this admission: 12/07/16 - Critical Care Critical Care patient: No
[2016-12-07] MEDS ORDERED: PT OWN MED DRAWER 7, Y5N ONE ×3 (13:57→18:11)
--- NOTE | 2016-12-07 14:29 | PN ---
Progress Note, Physician Chief Complaint: Resting Comfortably Slight discomfort at drainage site History of Present Illness: This is a 26 year old male with who presents with fevers, epigastric pain, body aches, and was noted to have a splenic abcess. His WBC was 23. Chest CT was negative for a PE. EKG showed sinus tachycardia at 110 BPM with normal intervals , normal axis, and NSSTTW changes. He had IR drainage of his spleen. Blood cultures were positive for Staph Aureus. Echocardiogram 12/03/16 showed an EF of 59%, normal LV size and functon and normal RV size and function. No vegetations seen. - Current Medication List Current Medications: Active Medications Docusate Sodium (Colace -) 100 mg PO TID [facility] Last Admin: 12/07/16 05:39 Dose: 100 mg Enoxaparin Sodium (Lovenox -) 40 mg SQ DAILY [facility] Last Admin: 12/07/16 09:38 Dose: 40 mg Potassium Chloride/Sodium Chloride (Ns+20 Meq Kcl -) 1,000 mls @ 100 mls/hr IV ASDIR [facility] Last Admin: 12/07/16 00:50 Dose: 100 mls/hr Nafcillin Sodium 2 gm/ (Dextrose) 100 mls @ 100 mls/hr IVPB Q4H-IV DARREL PRN Reason: Protocol Last Admin: 12/07/16 09:38 Dose: 100 mls/hr Lactobacillus Acidophilus (Bacid -) 1 tab PO DAILY [facility] Last Admin: 12/07/16 09:38 Dose: 1 tab Morphine Sulfate (Morphine Injection -) 2 mg IVPUSH Q4H PRN PRN Reason: PAIN Last Admin: 12/07/16 12:30 Dose: 2 mg Ondansetron HCl (Zofran Injection) 4 mg IVPB Q8H PRN PRN Reason: NAUSEA Last Admin: 12/04/16 15:00 Dose: 4 mg Ranitidine HCl (Zantac -) 150 mg PO BID [facility] Last Admin: 12/07/16 09:38 Dose: 150 mg Simethicone (Mylicon -) 80 mg PO QID PRN PRN Reason: GAS Last Admin: 12/07/16 09:38 Dose: 80 mg - Objective Vital Signs: Vital Signs Temperature 101 F H 12/07/16 05:57 Pulse Rate 92 H 12/07/16 05:57 Respiratory Rate 20 12/07/16 05:57 Blood Pressure 141/78 12/07/16 05:57 O2 Sat by Pulse Oximetry (%) 100 12/06/16 21:00 Constitutional: Yes: No Distress Neck: Yes: WNL Cardiovascular: Yes: Regular Rate and Rhythm, S1, S2 (No MRHG) Respiratory: Yes: CTA Bilaterally Gastrointestinal: Yes: Soft Peripheral Pulses WNL: No Neurological: Yes: Alert, Oriented (Non focal) Psychiatric: Yes: WNL Labs: CBC, BMP 12/07/16 06:05 12/07/16 06:05 INR, PTT INR 1.19 (0.82-1.09) 12/04/16 13:01 Assessment/Plan This is a 26 year old male with who presents with fevers, epigastric pain, body aches, and was noted to have a splenic abcess. His WBC was 23. Chest CT was negative for a PE. EKG showed sinus tachycardia at 110 BPM with normal intervals , normal axis, and NSSTTW changes. He had IR drainage of his spleen. Blood cultures were positive for Staph Aureus. Echocardiogram 12/03/16 showed an EF of 59%, normal LV size and function and normal RV size and function. No vegetations seen. ABX as per medicine team and ID - Nafcillin Monitor blood cultures and WBC trend Plan for a EMILY - Can be done after drain is removed. The EMILY would not affect immediate treatment but rather might impact duration of antibiotic course depending on the findings.
--- NOTE | 2016-12-07 15:24 | PN ---
Progress Note, Physician History of Present Illness: Continues to have LUQ abdominal pain No c/o fever/ chills No chest pain/ dyspnea/ cough Tolerating antibiotics Blood c/s 12/05 no growth - Current Medication List Current Medications: Active Medications Docusate Sodium (Colace -) 100 mg PO TID [facility] Last Admin: 12/07/16 14:39 Dose: Not Given Enoxaparin Sodium (Lovenox -) 40 mg SQ DAILY [facility] Last Admin: 12/07/16 09:38 Dose: 40 mg Potassium Chloride/Sodium Chloride (Ns+20 Meq Kcl -) 1,000 mls @ 100 mls/hr IV ASDIR [facility] Last Admin: 12/07/16 14:39 Dose: 100 mls/hr Nafcillin Sodium 2 gm/ (Dextrose) 100 mls @ 100 mls/hr IVPB Q4H-IV DARREL PRN Reason: Protocol Last Admin: 12/07/16 14:38 Dose: 100 mls/hr Lactobacillus Acidophilus (Bacid -) 1 tab PO DAILY [facility] Last Admin: 12/07/16 09:38 Dose: 1 tab Morphine Sulfate (Morphine Injection -) 2 mg IVPUSH Q4H PRN PRN Reason: PAIN Last Admin: 12/07/16 12:30 Dose: 2 mg Ondansetron HCl (Zofran Injection) 4 mg IVPB Q8H PRN PRN Reason: NAUSEA Last Admin: 12/04/16 15:00 Dose: 4 mg Ranitidine HCl (Zantac -) 150 mg PO BID [facility] Last Admin: 12/07/16 09:38 Dose: 150 mg Simethicone (Mylicon -) 80 mg PO QID PRN PRN Reason: GAS Last Admin: 12/07/16 09:38 Dose: 80 mg - Objective Vital Signs: Vital Signs Temperature 101 F H 12/07/16 05:57 Pulse Rate 92 H 12/07/16 05:57 Respiratory Rate 20 12/07/16 05:57 Blood Pressure 141/78 12/07/16 05:57 O2 Sat by Pulse Oximetry (%) 100 12/06/16 21:00 Constitutional: Yes: No Distress Eyes: Yes: Conjunctiva Clear Cardiovascular: Yes: Regular Rate and Rhythm, S1, S2 Respiratory: Yes: CTA Bilaterally Gastrointestinal: Yes: Normal Bowel Sounds, Soft, Abdomen, Obese, Tenderness, Other (+ LUQ tenderness to palp + serosanguinous fluid in COLLIN drain) Labs: CBC, BMP 12/07/16 06:05 12/07/16 06:05 INR, PTT INR 1.19 (0.82-1.09) 12/04/16 13:01 Assessment/Plan 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
[2016-12-07] MEDS ORDERED: SODIUM CHLORIDE 1,000 ML IV SCH (18:30)
[2016-12-07] MEDS: oxyCODONE HCL 5 MG TABLET PO PRN (18:52)
[2016-12-07] MEDS: ACETAMINOPHEN 325 MG TABLET (FP) PO PRN (18:53)
[2016-12-07] MEDS ORDERED: D5-1/2NS+20 MEQ KCL - 1,000 ML IV SCH (19:30)
[2016-12-07 21:20] LABS: MCH 27.8 pg (25.7-33.7); MCHC 33.2 g/dl (32.0-35.9); MEAN CELL VOLUME 83.7 fl (80-96); MEAN PLT VOLUME 7.7 fl (7.5-11.1); PLATELET COUNT 628 K/MM3 (134-434); RDW 15.7 % (11.9-15.9); WHITE BLOOD COUNT 26.5 K/mm3 (4.0-10.0)
[2016-12-07 21:43] LABS: ALK PHOS 109 U/L (45-117); ANION GAP 8 (8-16); BILIRUBIN,TOTAL 2.7 mg/dL (0.2-1.0); CALCIUM 7.9 mg/dL (8.5-10.1); CO2 28 mmol/L (21-32); CREATININE 0.9 mg/dL (0.7-1.3); GLUCOSE,RANDOM 114 mg/dL (74-106); SGOT/AST 73 U/L (15-37); SGPT/ALT 87 U/L (12-78); TOT PROT 5.6 g/dl (6.4-8.2)
[2016-12-07 22:11] LABS: METAMYELOCYTE 2 % (0-2)
[2016-12-07] MEDS ORDERED: VANCOMYCIN 1,500 MG in DEXTROSE 5%-WATER - 500 ML IVPB ONE (22:11)
[2016-12-07 22:12] LABS: PLATELET ESTIMATE MARKEDLY INCREASED (NORMAL)
[2016-12-07 22:41] LABS: C-REACTIVE PROTEIN 26.9 MG/DL (0.00-0.3)
[2016-12-07] MEDS ORDERED: morphine CARPU-JECT 4 MG/1 ML DISP.SYRIN IVPUSH PRN (23:37)
--- NOTE | 2016-12-07 23:37 | HOSP ---
Subjective - Review of Symptoms Events since last encounter: Called by radiologist with results of CT scan: perisplenic subcapsular fluid collection on posterior border slightly bigger; splenic infarct unchanged; splenic cyst with drain in place compressed; new small to moderate perihepatic fuid; Left pleural effusion increased in size and new small right pleural effusion with bilateral compressive atelectasis. Subjective: Pt feeling ok. Pain in abdomen still present. Not utilizing incentive spirometer due to same. Concerned that his abdomen is distended and he feels bloated. Gastrointestinal: Yes: Abdominal Pain Physical Examination Vital Signs: Vital Signs Temperature 99.9 F H 12/07/16 20:16 Pulse Rate 120 H 12/07/16 20:16 Respiratory Rate 18 12/07/16 20:16 Blood Pressure 132/74 12/07/16 20:16 O2 Sat by Pulse Oximetry (%) 97 12/07/16 20:18 Constitutional: Yes: Well Nourished, Calm Cardiovascular: Yes: Regular Rate and Rhythm, S1, S2. No: Gallop, Murmur, Rub Respiratory: Yes: Diminished (bilateral bases, otherwise CTA) Gastrointestinal: Yes: Normal Bowel Sounds, Soft, Tenderness (RUQ, LUQ, greatest LLQ), Other (slightly hypertympanic on percussion) Labs: CBC, BMP 12/07/16 20:50 12/07/16 20:50 Hospitalist Encounter Assessment: splenic abscess with new perihepatic fluid, worsening pleural effusion and worsening posterior perisplenic collection - intial abscess improved s/p IR drain, minimal fluid present - will DC fluids - obtain U/S abd/liver/spleen in am - would get surgical consult, consider cardiothoracic or pulmonary consult for possible pleurocentesis - pt transferred to [facility] for closer monitoring.
[2016-12-08] MEDS: oxyCODONE HCL 5 MG TABLET PO PRN (01:26)
[2016-12-08] MEDS: ACETAMINOPHEN 325 MG TABLET (FP) PO PRN (01:27)
[2016-12-08] MEDS: NAFCILLIN - 2 GM in DEXTROSE 5%-WATER - 100 ML IVPB SCH ×6 (02:18→21:15)
[2016-12-08 03:52] LABS: URINE APPEARANCE CLEAR; URINE BILIRUBIN NEGATIVE (NEGATIVE); URINE BLOOD NEGATIVE (NEGATIVE); URINE COLOR AMBER; URINE GLUCOSE (UA) NEGATIVE (NEGATIVE); URINE KETONE NEGATIVE (NEGATIVE); URINE LEUK ESTERASE NEGATIVE (NEGATIVE); URINE NITRITE NEGATIVE (NEGATIVE); URINE PROTEIN NEGATIVE (NEGATIVE); URINE UROBILINOGEN NEGATIVE mg/dL (0.2-1.0)
[2016-12-08] MEDS: DOCUSATE SODIUM 100 MG CAPSULE (FP) PO SCH ×3 (06:22→22:04)
[2016-12-08 07:40] LABS: ALBUMIN 1.8 g/dl (3.4-5.0); ANION GAP 6 (8-16); CO2 31 mmol/L (21-32); GLUCOSE,RANDOM 98 mg/dL (74-106); MAGNESIUM 2.6 mg/dL (1.8-2.4); MCH 27.3 pg (25.7-33.7); MCHC 32.7 g/dl (32.0-35.9); MEAN CELL VOLUME 83.6 fl (80-96); MEAN PLT VOLUME 7.5 fl (7.5-11.1); PHOSPHOROUS 3.5 mg/dL (2.5-4.9); PLATELET COUNT 567 K/MM3 (134-434); RDW 15.5 % (11.9-15.9); SGOT/AST 96 U/L (15-37); SGPT/ALT 128 U/L (12-78); WHITE BLOOD COUNT 22.5 K/mm3 (4.0-10.0)
[2016-12-08 07:42] LABS: ALK PHOS 105 U/L (45-117); BILIRUBIN,TOTAL 1.7 mg/dL (0.2-1.0); CREATININE 0.8 mg/dL (0.7-1.3); TOT PROT 5.4 g/dl (6.4-8.2)
[2016-12-08 08:12] LABS: IGG IMMUNOGLOBULIN 734 mg/dL (700-1600); IGM IMMUNOGLOBULIN 82 mg/dL (20-172)
[2016-12-08] MEDS: RANITIDINE HCL 150 MG TABLET (FP) PO SCH ×2 (09:35→22:00)
[2016-12-08] MEDS: LACTOBACILLUS ACIDOPHILUS 1 EACH TAB (FP) PO SCH (09:35)
[2016-12-08] MEDS: ENOXAPARIN NA (PORCINE) 40 MG/0.4 ML DISP.SYRIN SQ SCH (09:35)
[2016-12-08 09:40] LABS: C-REACTIVE PROTEIN 24.7 MG/DL (0.00-0.3)
[2016-12-08] MEDS ORDERED: POLYETHYLENE GLYCOL 3350 119 GM BTL PO SCH (10:00)
[2016-12-08 10:47] LABS: METAMYELOCYTE 3 % (0-2)
[2016-12-08 10:48] LABS: PLATELET ESTIMATE INCREASED (NORMAL)
--- NOTE | 2016-12-08 13:16 | EKG ---
Test Reason : Blood Pressure : / mmHG Vent. Rate : 105 BPM Atrial Rate : 105 BPM P-R Int : 146 ms QRS Dur : 104 ms QT Int : 336 ms P-R-T Axes : 039 015 012 degrees QTc Int : 444 ms SINUS TACHYCARDIA MINIMAL VOLTAGE CRITERIA FOR LVH, MAY BE NORMAL VARIANT NONSPECIFIC T WAVE ABNORMALITY ABNORMAL ECG WHEN COMPARED WITH ECG OF 03-DEC-2016 14:33, NO SIGNIFICANT CHANGE WAS FOUND Confirmed by MAXIMILIANO MCCONNELL, VEDA ([id number]) on 12/08/2016 1:16:14 PM Referred By: Lauren Diaz Confirmed By:VEDA VIERA MD
[2016-12-08 13:17] LABS: INR 1.44 (0.82-1.09)
--- NOTE | 2016-12-08 13:35 | DS ---
Physical Exam: SUBJECTIVE: Patient seen and examined. Walking in hallway, mildy SOB but satting 93% on room air. When lies down, taking deep breath causes left sided chest/flank pain. OBJECTIVE: Vital Signs Period Temp Pulse Resp BP Sys/Estrada Pulse Ox Last 24 Hr 98.9 F-102.0 F 97-125 18-20 130-143/70-85 94-97 PHYSICAL EXAM GENERAL: The patient is awake, alert, and fully oriented, in no acute distress. HEAD: Normal with no signs of trauma. EYES: PERRL, extraocular movements intact, sclera anicteric, conjunctiva clear. No ptosis. LUNGS: Breath sounds equal, clear to auscultation bilaterally, no wheezes, no crackles, no accessory muscle use. Mildly dyspnic with walking. HEART: Regular rate and rhythm, S1, S2 without murmur, rub or gallop. ABDOMEN: Soft, obese; epigastric and LUQ tenderness, hypoactive bowel sounds EXTREMITIES: 2+ pulses, warm, well-perfused, no edema. NEUROLOGICAL: Cranial nerves II through XII grossly intact. Normal speech, steady gait SKIN: Stretch harris bilateral upper biceps, abdomen Laboratory Tests--ALL LABS ENTIRE VISIT 12/02/16 12/02/16 12/02/16 14:10 14:15 14:15 WBC 10.7 RBC 5.33 Hgb 14.8 Hct 44.8 MCV 83.9 MCH 27.8 MCHC 33.1 RDW 13.6 Plt Count 339 D MPV 8.1 Neutrophils % 68.4 Lymphocytes % 16.3 D Monocytes % 12.8 H Eosinophils % 0.0 D Basophils % 2.5 H Band Neutrophils Metamyelocytes Myelocytes Promyelocytes Differential Comment Reactive Lymphocytes Platelet Estimate Platelet Comment Polychromasia Hypochromic-Microcytic Anisocytosis Macrocytosis Tear Drop Cells Stomatocytes ESR Retic Count INR PTT (Actin FS) Sodium 132 L Potassium 3.6 Chloride 95 L Carbon Dioxide 25 Anion Gap 12 BUN 10 Creatinine 1.1 Creat Clearance w eGFR > 60 Random Glucose 108 H Lactic Acid Calcium 9.0 Phosphorus Magnesium Total Bilirubin 1.2 H D Direct Bilirubin AST 77 H ALT 151 H Alkaline Phosphatase 131 H LD Total Creatine Kinase Troponin I C-Reactive Protein Total Protein 7.3 Albumin 3.5 Total Amylase Lipase Urine Color Yellow Urine Appearance Cloudy Urine pH 6.0 Ur Specific [place] 1.020 Urine Protein 2+ H Urine Glucose (UA) Negative Urine Ketones 4+ H Urine Blood Negative Urine Nitrite Negative Urine Bilirubin 2+ H Urine Urobilinogen 2.0 Ur Leukocyte Esterase Negative Urine RBC 0-2 Urine WBC 2-4 Urine Bacteria Few Opiates Screen Methadone Screen Barbiturate Screen Phencyclidine Screen Ur Amphetamines Screen MDMA (Ecstasy) Screen Benzodiazepines Screen Cocaine Screen U Marijuana (THC) Screen IgG IgA IgM CMV IgG Ab EBV Nuclear Antigen Hepatitis A IgM Ab Hep Bs Antigen Hep B Core IgM Ab Hepatitis C Ab (EIA) Monoscreen HIV 1&2 Antibody Screen HIV P24 Antigen 12/02/16 12/02/16 12/02/16 14:15 17:33 20:02 WBC RBC Hgb Hct MCV MCH MCHC RDW Plt Count MPV Neutrophils % Lymphocytes % Monocytes % Eosinophils % Basophils % Band Neutrophils Metamyelocytes Myelocytes Promyelocytes Differential Comment Reactive Lymphocytes Platelet Estimate Platelet Comment Polychromasia Hypochromic-Microcytic Anisocytosis Macrocytosis Tear Drop Cells Stomatocytes ESR Retic Count INR PTT (Actin FS) Sodium Potassium Chloride Carbon Dioxide Anion Gap BUN Creatinine Creat Clearance w eGFR Random Glucose Lactic Acid 1.7 Calcium Phosphorus Magnesium Total Bilirubin Direct Bilirubin AST ALT Alkaline Phosphatase LD Total Creatine Kinase 88 Troponin I C-Reactive Protein Total Protein Albumin Total Amylase Lipase Urine Color Urine Appearance Urine pH Ur Specific [place] Urine Protein Urine Glucose (UA) Urine Ketones Urine Blood Urine Nitrite Urine Bilirubin Urine Urobilinogen Ur Leukocyte Esterase Urine RBC Urine WBC Urine Bacteria Opiates Screen Methadone Screen Barbiturate Screen Phencyclidine Screen Ur Amphetamines Screen MDMA (Ecstasy) Screen Benzodiazepines Screen Cocaine Screen U Marijuana (THC) Screen IgG IgA IgM CMV IgG Ab 1.60 H EBV Nuclear Antigen 485.0 H Hepatitis A IgM Ab Hep Bs Antigen Hep B Core IgM Ab Hepatitis C Ab (EIA) Monoscreen HIV 1&2 Antibody Screen HIV P24 Antigen 12/02/16 12/03/16 12/03/16 20:02 07:30 07:30 WBC 15.0 H D RBC 4.82 Hgb 13.5 Hct 39.9 MCV 82.9 MCH 28.0 MCHC 33.8 RDW 13.7 Plt Count 304 MPV 8.8 Neutrophils % 85.2 H D Lymphocytes % 7.9 L D Monocytes % 6.5 Eosinophils % 0.0 Basophils % 0.4 Band Neutrophils Metamyelocytes Myelocytes Promyelocytes Differential Comment Reactive Lymphocytes Platelet Estimate Platelet Comment Polychromasia Hypochromic-Microcytic Anisocytosis Macrocytosis Tear Drop Cells Stomatocytes ESR Retic Count INR PTT (Actin FS) Sodium 131 L Potassium 3.4 L Chloride 98 Carbon Dioxide 24 Anion Gap 9 BUN 7 D Creatinine 0.9 Creat Clearance w eGFR Random Glucose 171 H D Lactic Acid Calcium 8.1 L Phosphorus Magnesium Total Bilirubin Direct Bilirubin AST ALT Alkaline Phosphatase LD Total Creatine Kinase Troponin I C-Reactive Protein Total Protein Albumin Total Amylase Lipase Urine Color Urine Appearance Urine pH Ur Specific [place] Urine Protein Urine Glucose (UA) Urine Ketones Urine Blood Urine Nitrite Urine Bilirubin Urine Urobilinogen Ur Leukocyte Esterase Urine RBC Urine WBC Urine Bacteria Opiates Screen Methadone Screen Barbiturate Screen Phencyclidine Screen Ur Amphetamines Screen MDMA (Ecstasy) Screen Benzodiazepines Screen Cocaine Screen U Marijuana (THC) Screen IgG IgA IgM CMV IgG Ab EBV Nuclear Antigen Hepatitis A IgM Ab Hep Bs Antigen Hep B Core IgM Ab Hepatitis C Ab (EIA) Monoscreen Negative HIV 1&2 Antibody Screen HIV P24 Antigen 12/03/16 12/03/16 12/03/16 07:30 07:30 07:30 WBC RBC Hgb Hct MCV MCH MCHC RDW Plt Count MPV Neutrophils % Lymphocytes % Monocytes % Eosinophils % Basophils % Band Neutrophils Metamyelocytes Myelocytes Promyelocytes Differential Comment Reactive Lymphocytes Platelet Estimate Platelet Comment Polychromasia Hypochromic-Microcytic Anisocytosis Macrocytosis Tear Drop Cells Stomatocytes ESR Retic Count INR 1.67 H PTT (Actin FS) Sodium Potassium Chloride Carbon Dioxide Anion Gap BUN Creatinine Creat Clearance w eGFR Random Glucose Lactic Acid Calcium Phosphorus 2.3 L Magnesium 1.9 Total Bilirubin 1.1 H Direct Bilirubin 0.4 H AST 34 D ALT 94 H D Alkaline Phosphatase 98 H D LD Total Creatine Kinase 56 Troponin I < 0.03 L C-Reactive Protein Total Protein 6.0 L Albumin 2.8 L Total Amylase 56 Lipase 22 Urine Color Urine Appearance Urine pH Ur Specific [place] Urine Protein Urine Glucose (UA) Urine Ketones Urine Blood Urine Nitrite Urine Bilirubin Urine Urobilinogen Ur Leukocyte Esterase Urine RBC Urine WBC Urine Bacteria Opiates Screen Methadone Screen Barbiturate Screen Phencyclidine Screen Ur Amphetamines Screen MDMA (Ecstasy) Screen Benzodiazepines Screen Cocaine Screen U Marijuana (THC) Screen IgG IgA IgM CMV IgG Ab EBV Nuclear Antigen Hepatitis A IgM Ab Negative Hep Bs Antigen Negative Hep B Core IgM Ab Negative Hepatitis C Ab (EIA) <0.1 Monoscreen HIV 1&2 Antibody Screen HIV P24 Antigen 12/03/16 12/03/16 12/03/16 07:30 07:30 13:00 WBC RBC Hgb Hct MCV MCH MCHC RDW Plt Count MPV Neutrophils % Lymphocytes % Monocytes % Eosinophils % Basophils % Band Neutrophils Metamyelocytes Myelocytes Promyelocytes Differential Comment Reactive Lymphocytes Platelet Estimate Platelet Comment Polychromasia Hypochromic-Microcytic Anisocytosis Macrocytosis Tear Drop Cells Stomatocytes ESR Retic Count INR PTT (Actin FS) Sodium Potassium Chloride Carbon Dioxide Anion Gap BUN Creatinine Creat Clearance w eGFR Random Glucose Lactic Acid Calcium Phosphorus Cancelled Magnesium Cancelled Total Bilirubin Cancelled Direct Bilirubin Cancelled AST Cancelled ALT Cancelled Alkaline Phosphatase Cancelled LD Total Creatine Kinase Troponin I C-Reactive Protein Total Protein Cancelled Albumin Cancelled Total Amylase Cancelled Lipase Cancelled Urine Color Urine Appearance Urine pH Ur Specific [place] Urine Protein Urine Glucose (UA) Urine Ketones Urine Blood Urine Nitrite Urine Bilirubin Urine Urobilinogen Ur Leukocyte Esterase Urine RBC Urine WBC Urine Bacteria Opiates Screen Positive Methadone Screen Negative Barbiturate Screen Negative Phencyclidine Screen Negative Ur Amphetamines Screen Negative MDMA (Ecstasy) Screen Negative Benzodiazepines Screen Negative Cocaine Screen Negative U Marijuana (THC) Screen Negative IgG IgA IgM CMV IgG Ab EBV Nuclear Antigen Hepatitis A IgM Ab Hep Bs Antigen Hep B Core IgM Ab Hepatitis C Ab (EIA) Monoscreen HIV 1&2 Antibody Screen HIV P24 Antigen 12/04/16 12/04/16 12/04/16 07:00 07:00 07:00 WBC 26.4 H D RBC 5.41 Hgb 15.2 D Hct 45.1 MCV 83.4 MCH 28.1 MCHC 33.7 RDW 14.1 Plt Count 335 MPV 9.2 Neutrophils % 72.0 Lymphocytes % 1.0 L D Monocytes % 11.0 H Eosinophils % Basophils % Band Neutrophils 16.0 H Metamyelocytes Myelocytes Promyelocytes Differential Comment Reactive Lymphocytes Platelet Estimate Adequate Platelet Comment Few large plts Polychromasia 1+ Hypochromic-Microcytic 1+ Anisocytosis 1+ Macrocytosis Tear Drop Cells 1+ Stomatocytes 1+ ESR Retic Count INR PTT (Actin FS) Sodium 133 L Potassium 4.5 D Chloride 100 Carbon Dioxide 23 Anion Gap 10 BUN 10 D Creatinine 0.9 Creat Clearance w eGFR > 60 Random Glucose 155 H Lactic Acid Calcium 8.2 L Phosphorus 2.6 Magnesium 2.4 D Total Bilirubin 1.5 H D Direct Bilirubin AST 27 D ALT 75 H D Alkaline Phosphatase 92 LD Total Creatine Kinase Troponin I C-Reactive Protein Total Protein 6.3 L Albumin 2.6 L Total Amylase Lipase Urine Color Urine Appearance Urine pH Ur Specific [place] Urine Protein Urine Glucose (UA) Urine Ketones Urine Blood Urine Nitrite Urine Bilirubin Urine Urobilinogen Ur Leukocyte Esterase Urine RBC Urine WBC Urine Bacteria Opiates Screen Methadone Screen Barbiturate Screen Phencyclidine Screen Ur Amphetamines Screen MDMA (Ecstasy) Screen Benzodiazepines Screen Cocaine Screen U Marijuana (THC) Screen IgG IgA IgM CMV IgG Ab EBV Nuclear Antigen Hepatitis A IgM Ab Hep Bs Antigen Hep B Core IgM Ab Hepatitis C Ab (EIA) Monoscreen HIV 1&2 Antibody Screen Negative HIV P24 Antigen Negative 12/04/16 12/05/16 12/05/16 13:01 08:24 08:24 WBC 23.0 H RBC 4.51 Hgb 12.3 Hct 37.7 MCV 83.5 MCH 27.2 MCHC 32.6 RDW 15.0 Plt Count 375 MPV 8.2 Neutrophils % 86.3 H Lymphocytes % 5.8 L Monocytes % 7.5 Eosinophils % 0.0 Basophils % 0.4 Band Neutrophils Metamyelocytes Myelocytes Promyelocytes Differential Comment Reactive Lymphocytes Platelet Estimate Platelet Comment Polychromasia Hypochromic-Microcytic Anisocytosis Macrocytosis Tear Drop Cells Stomatocytes ESR Retic Count INR 1.19 PTT (Actin FS) Sodium 138 Potassium 4.2 Chloride 102 Carbon Dioxide 27 Anion Gap 9 BUN 9 Creatinine 0.7 Creat Clearance w eGFR > 60 Random Glucose 99 Lactic Acid Calcium 8.1 L Phosphorus 1.7 L Magnesium 2.6 H Total Bilirubin 1.0 Direct Bilirubin AST 19 ALT 54 Alkaline Phosphatase 85 LD Total Creatine Kinase Troponin I C-Reactive Protein Total Protein 5.8 L Albumin 2.2 L Total Amylase Lipase Urine Color Urine Appearance Urine pH Ur Specific [place] Urine Protein Urine Glucose (UA) Urine Ketones Urine Blood Urine Nitrite Urine Bilirubin Urine Urobilinogen Ur Leukocyte Esterase Urine RBC Urine WBC Urine Bacteria Opiates Screen Methadone Screen Barbiturate Screen Phencyclidine Screen Ur Amphetamines Screen MDMA (Ecstasy) Screen Benzodiazepines Screen Cocaine Screen U Marijuana (THC) Screen IgG IgA IgM CMV IgG Ab EBV Nuclear Antigen Hepatitis A IgM Ab Hep Bs Antigen Hep B Core IgM Ab Hepatitis C Ab (EIA) Monoscreen HIV 1&2 Antibody Screen HIV P24 Antigen 12/06/16 12/06/16 12/06/16 07:29 07:29 07:29 WBC 20.9 H RBC 4.60 Hgb 12.6 Hct 38.7 MCV 84.2 MCH 27.4 MCHC 32.5 RDW 15.2 Plt Count 434 MPV 8.1 Neutrophils % 78.0 Lymphocytes % 8.0 D Monocytes % 9.0 Eosinophils % Basophils % Band Neutrophils 3.0 Metamyelocytes 1 Myelocytes Promyelocytes Differential Comment Reactive Lymphocytes 1 Platelet Estimate Increased Platelet Comment No clumping noted Polychromasia Hypochromic-Microcytic Anisocytosis Macrocytosis Tear Drop Cells Stomatocytes ESR 50 H Retic Count INR PTT (Actin FS) Sodium 138 Potassium 4.4 Chloride 103 Carbon Dioxide 27 Anion Gap 8 BUN 9 Creatinine 0.8 Creat Clearance w eGFR > 60 Random Glucose 95 Lactic Acid Calcium 8.0 L Phosphorus 3.4 D Magnesium 2.6 H Total Bilirubin 2.2 H D Direct Bilirubin AST 33 D ALT 56 Alkaline Phosphatase 98 LD Total Creatine Kinase Troponin I C-Reactive Protein 28.1 H Total Protein 5.4 L Albumin 2.0 L Total Amylase Lipase Urine Color Urine Appearance Urine pH Ur Specific [place] Urine Protein Urine Glucose (UA) Urine Ketones Urine Blood Urine Nitrite Urine Bilirubin Urine Urobilinogen Ur Leukocyte Esterase Urine RBC Urine WBC Urine Bacteria Opiates Screen Methadone Screen Barbiturate Screen Phencyclidine Screen Ur Amphetamines Screen MDMA (Ecstasy) Screen Benzodiazepines Screen Cocaine Screen U Marijuana (THC) Screen IgG IgA IgM CMV IgG Ab EBV Nuclear Antigen Hepatitis A IgM Ab Hep Bs Antigen Hep B Core IgM Ab Hepatitis C Ab (EIA) Monoscreen HIV 1&2 Antibody Screen HIV P24 Antigen 12/06/16 12/07/16 12/07/16 14:20 06:05 06:05 WBC 24.5 H RBC 4.26 Hgb 11.6 L Hct 35.6 MCV 83.6 MCH 27.2 MCHC 32.5 RDW 15.3 Plt Count 497 H MPV 7.8 Neutrophils % 85.4 H Lymphocytes % 6.3 L D Monocytes % 8.2 Eosinophils % 0.1 D Basophils % 0.0 Band Neutrophils Metamyelocytes Myelocytes Promyelocytes Differential Comment Reactive Lymphocytes Platelet Estimate Platelet Comment Polychromasia Hypochromic-Microcytic Anisocytosis Macrocytosis Tear Drop Cells Stomatocytes ESR Retic Count INR PTT (Actin FS) Sodium 138 Potassium 3.8 Chloride 100 Carbon Dioxide 29 Anion Gap 9 BUN 9 Creatinine 0.9 Creat Clearance w eGFR > 60 Random Glucose 144 H D Lactic Acid Calcium 7.7 L Phosphorus Magnesium Total Bilirubin 2.2 H Direct Bilirubin AST 42 H D ALT 64 Alkaline Phosphatase 88 LD Total Creatine Kinase Troponin I C-Reactive Protein Total Protein 5.4 L Albumin 1.9 L Total Amylase Lipase Urine Color Urine Appearance Urine pH Ur Specific [place] Urine Protein Urine Glucose (UA) Urine Ketones Urine Blood Urine Nitrite Urine Bilirubin Urine Urobilinogen Ur Leukocyte Esterase Urine RBC Urine WBC Urine Bacteria Opiates Screen Methadone Screen Barbiturate Screen Phencyclidine Screen Ur Amphetamines Screen MDMA (Ecstasy) Screen Benzodiazepines Screen Cocaine Screen U Marijuana (THC) Screen IgG 734 IgA 244 IgM 82 CMV IgG Ab EBV Nuclear Antigen Hepatitis A IgM Ab Hep Bs Antigen Hep B Core IgM Ab Hepatitis C Ab (EIA) Monoscreen HIV 1&2 Antibody Screen HIV P24 Antigen 12/07/16 12/07/16 12/07/16 20:50 20:50 20:50 WBC 26.5 H RBC 4.32 Hgb 12.0 Hct 36.2 MCV 83.7 MCH 27.8 MCHC 33.2 RDW 15.7 Plt Count 628 H D MPV 7.7 Neutrophils % 86.0 H Lymphocytes % 3.0 L D Monocytes % 6.0 Eosinophils % Basophils % Band Neutrophils 2.0 D Metamyelocytes 2 D Myelocytes Promyelocytes 1 Differential Comment Reactive Lymphocytes Platelet Estimate Markedly increased Platelet Comment Few large plts Polychromasia Hypochromic-Microcytic Anisocytosis Macrocytosis 1+ Tear Drop Cells Stomatocytes ESR Retic Count INR PTT (Actin FS) Sodium 138 Potassium 3.6 Chloride 102 Carbon Dioxide 28 Anion Gap 8 BUN 8 Creatinine 0.9 Creat Clearance w eGFR > 60 Random Glucose 114 H D Lactic Acid 1.0 Calcium 7.9 L Phosphorus Magnesium Total Bilirubin 2.7 H D Direct Bilirubin AST 73 H D ALT 87 H D Alkaline Phosphatase 109 D LD Total Creatine Kinase Troponin I C-Reactive Protein Total Protein 5.6 L Albumin 2.0 L Total Amylase Lipase Urine Color Urine Appearance Urine pH Ur Specific [place] Urine Protein Urine Glucose (UA) Urine Ketones Urine Blood Urine Nitrite Urine Bilirubin Urine Urobilinogen Ur Leukocyte Esterase Urine RBC Urine WBC Urine Bacteria Opiates Screen Methadone Screen Barbiturate Screen Phencyclidine Screen Ur Amphetamines Screen MDMA (Ecstasy) Screen Benzodiazepines Screen Cocaine Screen U Marijuana (THC) Screen IgG IgA IgM CMV IgG Ab EBV Nuclear Antigen Hepatitis A IgM Ab Hep Bs Antigen Hep B Core IgM Ab Hepatitis C Ab (EIA) Monoscreen HIV 1&2 Antibody Screen HIV P24 Antigen 12/07/16 12/07/16 12/07/16 Unknown Unknown Unknown WBC RBC Hgb Hct MCV MCH MCHC RDW Plt Count MPV Neutrophils % Lymphocytes % Monocytes % Eosinophils % Basophils % Band Neutrophils Metamyelocytes Myelocytes Promyelocytes Differential Comment Reactive Lymphocytes Platelet Estimate Platelet Comment Polychromasia Hypochromic-Microcytic Anisocytosis Macrocytosis Tear Drop Cells Stomatocytes ESR Retic Count 1.33 INR PTT (Actin FS) Sodium Potassium Chloride Carbon Dioxide Anion Gap BUN Creatinine Creat Clearance w eGFR Random Glucose Lactic Acid Calcium Phosphorus Magnesium Total Bilirubin Direct Bilirubin 1.9 H AST ALT Alkaline Phosphatase LD Total 294 H Creatine Kinase Troponin I C-Reactive Protein 26.9 H D Total Protein Albumin Total Amylase Lipase Urine Color Urine Appearance Urine pH Ur Specific [place] Urine Protein Urine Glucose (UA) Urine Ketones Urine Blood Urine Nitrite Urine Bilirubin Urine Urobilinogen Ur Leukocyte Esterase Urine RBC Urine WBC Urine Bacteria Opiates Screen Methadone Screen Barbiturate Screen Phencyclidine Screen Ur Amphetamines Screen MDMA (Ecstasy) Screen Benzodiazepines Screen Cocaine Screen U Marijuana (THC) Screen IgG IgA IgM CMV IgG Ab EBV Nuclear Antigen Hepatitis A IgM Ab Hep Bs Antigen Hep B Core IgM Ab Hepatitis C Ab (EIA) Monoscreen HIV 1&2 Antibody Screen HIV P24 Antigen 12/08/16 12/08/16 12/08/16 03:35 05:35 05:35 WBC 22.5 H RBC 4.09 Hgb 11.2 L Hct 34.2 L MCV 83.6 MCH 27.3 MCHC 32.7 RDW 15.5 Plt Count 567 H MPV 7.5 Neutrophils % 83.0 H Lymphocytes % 4.0 L D Monocytes % 6.0 Eosinophils % 1.0 D Basophils % Band Neutrophils Metamyelocytes 3 H D Myelocytes 3 H Promyelocytes Differential Comment Manual diff done Reactive Lymphocytes Platelet Estimate Increased Platelet Comment Polychromasia Hypochromic-Microcytic Anisocytosis Macrocytosis Tear Drop Cells Stomatocytes ESR Retic Count INR PTT (Actin FS) Sodium 138 Potassium 4.0 Chloride 101 Carbon Dioxide 31 Anion Gap 6 L BUN 8 Creatinine 0.8 Creat Clearance w eGFR > 60 Random Glucose 98 Lactic Acid Calcium 8.0 L Phosphorus 3.5 Magnesium 2.6 H Total Bilirubin 1.7 H D Direct Bilirubin AST 96 H D ALT 128 H D Alkaline Phosphatase 105 LD Total Creatine Kinase Troponin I C-Reactive Protein 24.7 H D Total Protein 5.4 L Albumin 1.8 L Total Amylase Lipase Urine Color Radha Urine Appearance Clear Urine pH 5.0 Ur Specific [place] 1.020 Urine Protein Negative Urine Glucose (UA) Negative Urine Ketones Negative Urine Blood Negative Urine Nitrite Negative Urine Bilirubin Negative Urine Urobilinogen Negative Ur Leukocyte Esterase Negative Urine RBC Urine WBC Urine Bacteria Opiates Screen Methadone Screen Barbiturate Screen Phencyclidine Screen Ur Amphetamines Screen MDMA (Ecstasy) Screen Benzodiazepines Screen Cocaine Screen U Marijuana (THC) Screen IgG IgA IgM CMV IgG Ab EBV Nuclear Antigen Hepatitis A IgM Ab Hep Bs Antigen Hep B Core IgM Ab Hepatitis C Ab (EIA) Monoscreen HIV 1&2 Antibody Screen HIV P24 Antigen 12/08/16 12/08/16 12/08/16 05:35 05:35 12:45 WBC RBC Hgb Hct MCV MCH MCHC RDW Plt Count MPV Neutrophils % Lymphocytes % Monocytes % Eosinophils % Basophils % Band Neutrophils Metamyelocytes Myelocytes Promyelocytes Differential Comment Reactive Lymphocytes Platelet Estimate Platelet Comment Polychromasia Hypochromic-Microcytic Anisocytosis Macrocytosis Tear Drop Cells Stomatocytes ESR Retic Count INR PTT (Actin FS) 30.6 Sodium Potassium Chloride Carbon Dioxide Anion Gap BUN Creatinine Creat Clearance w eGFR Random Glucose Lactic Acid 0.7 Calcium Phosphorus Magnesium Total Bilirubin Direct Bilirubin AST ALT Alkaline Phosphatase LD Total Creatine Kinase Troponin I C-Reactive Protein Cancelled Total Protein Albumin Total Amylase Lipase Urine Color Urine Appearance Urine pH Ur Specific [place] Urine Protein Urine Glucose (UA) Urine Ketones Urine Blood Urine Nitrite Urine Bilirubin Urine Urobilinogen Ur Leukocyte Esterase Urine RBC Urine WBC Urine Bacteria Opiates Screen Methadone Screen Barbiturate Screen Phencyclidine Screen Ur Amphetamines Screen MDMA (Ecstasy) Screen Benzodiazepines Screen Cocaine Screen U Marijuana (THC) Screen IgG IgA IgM CMV IgG Ab EBV Nuclear Antigen Hepatitis A IgM Ab Hep Bs Antigen Hep B Core IgM Ab Hepatitis C Ab (EIA) Monoscreen HIV 1&2 Antibody Screen HIV P24 Antigen 12/08/16 12:45 WBC RBC Hgb Hct MCV MCH MCHC RDW Plt Count MPV Neutrophils % Lymphocytes % Monocytes % Eosinophils % Basophils % Band Neutrophils Metamyelocytes Myelocytes Promyelocytes Differential Comment Reactive Lymphocytes Platelet Estimate Platelet Comment Polychromasia Hypochromic-Microcytic Anisocytosis Macrocytosis Tear Drop Cells Stomatocytes ESR Retic Count INR 1.44 H PTT (Actin FS) Sodium Potassium Chloride Carbon Dioxide Anion Gap BUN Creatinine Creat Clearance w eGFR Random Glucose Lactic Acid Calcium Phosphorus Magnesium Total Bilirubin Direct Bilirubin AST ALT Alkaline Phosphatase LD Total Creatine Kinase Troponin I C-Reactive Protein Total Protein Albumin Total Amylase Lipase Urine Color Urine Appearance Urine pH Ur Specific [place] Urine Protein Urine Glucose (UA) Urine Ketones Urine Blood Urine Nitrite Urine Bilirubin Urine Urobilinogen Ur Leukocyte Esterase Urine RBC Urine WBC Urine Bacteria Opiates Screen Methadone Screen Barbiturate Screen Phencyclidine Screen Ur Amphetamines Screen MDMA (Ecstasy) Screen Benzodiazepines Screen Cocaine Screen U Marijuana (THC) Screen IgG IgA IgM CMV IgG Ab EBV Nuclear Antigen Hepatitis A IgM Ab Hep Bs Antigen Hep B Core IgM Ab Hepatitis C Ab (EIA) Monoscreen HIV 1&2 Antibody Screen HIV P24 Antigen Microbiology 12/05/16 10:35 Abscess Gram Stain - Final 12/05/16 10:35 Abscess Body Fluid Culture - Final Staphylococcus Aureus 12/05/16 10:35 Abscess Anaerobic Culture - Final NO ANAEROBES WERE ISOLATED 12/05/16 08:24 Blood - Peripheral Venous Blood Culture - Preliminary NO GROWTH OBTAINED AFTER 72 HOURS, INCUBATION TO CONTINUE FOR 2 DAYS. 12/05/16 08:24 Blood - Peripheral Venous Blood Culture - Preliminary NO GROWTH OBTAINED AFTER 72 HOURS, INCUBATION TO CONTINUE FOR 2 DAYS. 12/03/16 12:26 Blood - Peripheral Venous Blood Culture - Final Staphylococcus Aureus 12/03/16 12:26 Blood - Peripheral Venous Blood Culture - Final Staphylococcus Aureus 12/02/16 17:33 Blood - Peripheral Venous Blood Culture - Final Staphylococcus Aureus 12/02/16 17:33 Blood - Peripheral Venous Blood Culture - Final Staphylococcus Aureus 12/02/16 14:10 Urine - Urine Clean Catch Urine Culture - Final NO GROWTH OBTAINED 12/02/16 12:50 Nasopharyngeal Swab Influenza Types A,B Antigen (DANGELO) - Final -Negative 12/02/16 12:50 Nasopharyngeal Swab - Final HOSPITAL COURSE: Date of Admission:12/02/16 Date of Discharge: 12/08/16 Pre hospital course This is a 26 y/o male with no significant medical history who presents to the ED with fever, bodyaches x 7 days, abdominal pain and nausea x today. Patient reports having fever, chills, body-aches with night sweats last Saturday. Patient reports seeing his PMD last Saturday and having a PPD, throat culture, blood cultures. Patient reports having epigastric pain radiating to LUQ and L- shoulder. Patient reports recent travel to [place] 11/17-11/20, with a sick contact exposure mid air. Patient denies CP, constipation, dysuria. ER course (1) CTAP- atelectasis, ?splenic infarct (2) T Max 103 (3) WBC 10.7 (4) Lactic Acid 1.7 Subsequent hospital course by Problem List 26 year-old male with no significant PMH admitted for splenic abscess and MSSA bacteremia. Sepsis secondary to MSSA bacteremia and splenic MSSA abscesses x 2 --12/02 and 12/03 blood cultures positive for MSSA; 12/05 blood cultures NGTD; blood cultures pending --12/05 splenic abscess culture positive for MSSA --was admitted with fever 103 and continues to spike fevers; Tm 102 and WBC 22.5k --continue Nafcillin (day #4) Splenic abscess s/p drainage on 12/05 (abscess #1) Posterior splenic abscess (abscess #2) Acute splenic infarct --abscess #1: COLLIN drain placed 12/05, serosanguinous drainage (140mL-->95mL--> 60mL-->25mL) --abscess #2: not seen on 12/02 CT exam; first seen on 12/03; slightly increased on 12/07 scan 5.4x5x1.7cm; discussed with IR Dr. 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 Minutes to complete discharge: 45 Discharge Summary Reason For Visit: FEVER, SPLENIC INFARCT Current Active Problems DVT prophylaxis (Acute) Fever (Acute) Inspiratory pain (Acute) Splenic infarct (Acute) Condition: Stable - Instructions Referrals: Moris Reyes MD [Staff Physician] - Disposition: TRANSFER ACUTE CARE/OTHER HOSP - Home Medications Comprehensive Discharge Medication List: Ambulatory Orders NK [No Known Home Medication] 12/02/16 This patient is new to me today: No Emergency Visit: Yes ED Registration Date: 12/02/16 Care time: The patient presented to the Emergency Department on the above date and was hospitalized for further evaluation of their emergent condition. Critical Care patient: No - Discharge Referral Referred to [facility] No
[2016-12-08] MEDS ORDERED: PT OWN MED DRAWER 7, Y5N ONE ×3 (14:41→20:07)
[2016-12-08] MEDS: SIMETHICONE 80 MG TAB.CHEW (FP) PO PRN (20:11)
--- NOTE | 2016-12-08 20:56 | PN ---
Physical Exam: SUBJECTIVE: Patient seen and examined OBJECTIVE: Vital Signs Period Temp Pulse Resp BP Sys/Estrada Pulse Ox Last 24 Hr 98.9 F-99.6 F 97-125 16-20 130-143/70-85 94 GENERAL: The patient is awake, alert, and fully oriented, in no acute distress. HEAD: Normal with no signs of trauma. EYES: PERRL, extraocular movements intact, sclera anicteric, conjunctiva clear. No ptosis. ENT: Ears normal, nares patent, oropharynx clear without exudates, moist mucous membranes. NECK: Trachea midline, full range of motion, supple. LUNGS: Breath sounds equal, clear to auscultation bilaterally, no wheezes, no crackles, no accessory muscle use. HEART: Regular rate and rhythm, S1, S2 without murmur, rub or gallop. ABDOMEN: Soft, nontender, nondistended, normoactive bowel sounds, no guarding, no rebound, no hepatosplenomegaly, no masses. EXTREMITIES: 2+ pulses, warm, well-perfused, no edema. NEUROLOGICAL: Cranial nerves II through XII grossly intact. Normal speech, gait not observed. PSYCH: Normal mood, normal affect. SKIN: Warm, dry, normal turgor, no rashes or lesions noted Laboratory Results - last 24 hr 12/06/16 12/07/16 12/07/16 14:20 20:50 20:50 WBC 26.5 H RBC 4.32 Hgb 12.0 Hct 36.2 MCV 83.7 MCH 27.8 MCHC 33.2 RDW 15.7 Plt Count 628 H D MPV 7.7 Neutrophils % 86.0 H Lymphocytes % 3.0 L D Monocytes % 6.0 Eosinophils % Band Neutrophils 2.0 D Metamyelocytes 2 D Myelocytes Promyelocytes 1 Differential Comment Platelet Estimate Markedly increased Platelet Comment Few large plts Macrocytosis 1+ Retic Count INR PTT (Actin FS) Sodium 138 Potassium 3.6 Chloride 102 Carbon Dioxide 28 Anion Gap 8 BUN 8 Creatinine 0.9 Creat Clearance w eGFR > 60 Random Glucose 114 H D Lactic Acid Calcium 7.9 L Phosphorus Magnesium Total Bilirubin 2.7 H D Direct Bilirubin AST 73 H D ALT 87 H D Alkaline Phosphatase 109 D LD Total C-Reactive Protein Total Protein 5.6 L Albumin 2.0 L Urine Color Urine Appearance Urine pH Ur Specific [place] Urine Protein Urine Glucose (UA) Urine Ketones Urine Blood Urine Nitrite Urine Bilirubin Urine Urobilinogen Ur Leukocyte Esterase IgG 734 IgA 244 IgM 82 12/07/16 12/07/16 12/07/16 20:50 Unknown Unknown WBC RBC Hgb Hct MCV MCH MCHC RDW Plt Count MPV Neutrophils % Lymphocytes % Monocytes % Eosinophils % Band Neutrophils Metamyelocytes Myelocytes Promyelocytes Differential Comment Platelet Estimate Platelet Comment Macrocytosis Retic Count 1.33 INR PTT (Actin FS) Sodium Potassium Chloride Carbon Dioxide Anion Gap BUN Creatinine Creat Clearance w eGFR Random Glucose Lactic Acid 1.0 Calcium Phosphorus Magnesium Total Bilirubin Direct Bilirubin AST ALT Alkaline Phosphatase LD Total 294 H C-Reactive Protein 26.9 H D Total Protein Albumin Urine Color Urine Appearance Urine pH Ur Specific [place] Urine Protein Urine Glucose (UA) Urine Ketones Urine Blood Urine Nitrite Urine Bilirubin Urine Urobilinogen Ur Leukocyte Esterase IgG IgA IgM 12/07/16 12/08/16 12/08/16 Unknown 03:35 05:35 WBC 22.5 H RBC 4.09 Hgb 11.2 L Hct 34.2 L MCV 83.6 MCH 27.3 MCHC 32.7 RDW 15.5 Plt Count 567 H MPV 7.5 Neutrophils % 83.0 H Lymphocytes % 4.0 L D Monocytes % 6.0 Eosinophils % 1.0 D Band Neutrophils Metamyelocytes 3 H D Myelocytes 3 H Promyelocytes Differential Comment Manual diff done Platelet Estimate Increased Platelet Comment Macrocytosis Retic Count INR PTT (Actin FS) Sodium Potassium Chloride Carbon Dioxide Anion Gap BUN Creatinine Creat Clearance w eGFR Random Glucose Lactic Acid Calcium Phosphorus Magnesium Total Bilirubin Direct Bilirubin 1.9 H AST ALT Alkaline Phosphatase LD Total C-Reactive Protein Total Protein Albumin Urine Color Radha Urine Appearance Clear Urine pH 5.0 Ur Specific [place] 1.020 Urine Protein Negative Urine Glucose (UA) Negative Urine Ketones Negative Urine Blood Negative Urine Nitrite Negative Urine Bilirubin Negative Urine Urobilinogen Negative Ur Leukocyte Esterase Negative IgG IgA IgM 12/08/16 12/08/16 12/08/16 05:35 05:35 05:35 WBC RBC Hgb Hct MCV MCH MCHC RDW Plt Count MPV Neutrophils % Lymphocytes % Monocytes % Eosinophils % Band Neutrophils Metamyelocytes Myelocytes Promyelocytes Differential Comment Platelet Estimate Platelet Comment Macrocytosis Retic Count INR PTT (Actin FS) Sodium 138 Potassium 4.0 Chloride 101 Carbon Dioxide 31 Anion Gap 6 L BUN 8 Creatinine 0.8 Creat Clearance w eGFR > 60 Random Glucose 98 Lactic Acid 0.7 Calcium 8.0 L Phosphorus 3.5 Magnesium 2.6 H Total Bilirubin 1.7 H D Direct Bilirubin AST 96 H D ALT 128 H D Alkaline Phosphatase 105 LD Total C-Reactive Protein 24.7 H D Cancelled Total Protein 5.4 L Albumin 1.8 L Urine Color Urine Appearance Urine pH Ur Specific [place] Urine Protein Urine Glucose (UA) Urine Ketones Urine Blood Urine Nitrite Urine Bilirubin Urine Urobilinogen Ur Leukocyte Esterase IgG IgA IgM 12/08/16 12/08/16 12:45 12:45 WBC RBC Hgb Hct MCV MCH MCHC RDW Plt Count MPV Neutrophils % Lymphocytes % Monocytes % Eosinophils % Band Neutrophils Metamyelocytes Myelocytes Promyelocytes Differential Comment Platelet Estimate Platelet Comment Macrocytosis Retic Count INR 1.44 H PTT (Actin FS) 30.6 Sodium Potassium Chloride Carbon Dioxide Anion Gap BUN Creatinine Creat Clearance w eGFR Random Glucose Lactic Acid Calcium Phosphorus Magnesium Total Bilirubin Direct Bilirubin AST ALT Alkaline Phosphatase LD Total C-Reactive Protein Total Protein Albumin Urine Color Urine Appearance Urine pH Ur Specific [place] Urine Protein Urine Glucose (UA) Urine Ketones Urine Blood Urine Nitrite Urine Bilirubin Urine Urobilinogen Ur Leukocyte Esterase IgG IgA IgM Active Medications Generic Name Dose Route Start Last Admin Trade Name Freq PRN Reason Stop Dose Admin Acetaminophen 650 mg 12/07/16 18:33 12/08/16 01:27 Tylenol - PO 650 mg Q6H PRN Administration FEVER OR PAIN Docusate Sodium 100 mg 12/03/16 14:00 12/08/16 14:11 Colace - PO Not Given TID DARREL Enoxaparin Sodium 40 mg 12/04/16 10:00 12/08/16 09:35 Lovenox - SQ 40 mg DAILY DARREL Administration Nafcillin Sodium 2 gm/ 100 mls @ 100 mls/hr 12/05/16 14:00 12/08/16 18:01 Dextrose IVPB 100 mls/hr Q4H-IV DARREL Administration Protocol Lactobacillus Acidophilus 1 tab 12/04/16 15:30 12/08/16 09:35 Bacid - PO 1 tab DAILY DARREL Administration Morphine Sulfate 2 mg 12/07/16 23:37 12/08/16 00:02 Morphine Injection - IVPUSH 2 mg Q4H PRN Administration PAIN Ondansetron HCl 4 mg 12/04/16 11:07 08/08/17 15:00 Zofran Injection IVPB 4 mg Q8H PRN Administration NAUSEA Oxycodone HCl 5 mg 12/07/16 18:30 12/08/16 01:26 Roxicodone - PO 5 mg Q6H PRN Administration PAIN Ranitidine HCl 150 mg 12/04/16 22:00 12/08/16 09:35 Zantac - PO 150 mg BID DARREL Administration Simethicone 80 mg 12/05/16 14:15 12/08/16 20:11 Mylicon - PO 80 mg QID PRN Administration GAS ASSESSMENT/PLAN:
[2016-12-09 00:20] VITALS: BP 132/73; PULSE 102; TEMP 99.9
== END 2016-12-08 22:30 | disposition short-term general hospital (02) | DRG 872 ==
LOC: FER 13:58 → FM/S 19:51 → J6S 12-04 20:11 → J4W 12-07 21:26
PROVIDERS: ADMIT Internal Medicine; ATTEND Nurse Practitioner Acute Care
PROC: 079P30Z Drainage of Spleen with Drainage Device, Percutaneous Approach (ICD-10-PCS; principal; 2016-12-05)
DX: A41.9 Sepsis, unspecified organism (principal); J90 Pleural effusion, not elsewhere classified; J98.11 Atelectasis; R18.8 Other ascites; D73.3 Abscess of spleen; D73.5 Infarction of spleen; E88.09 Other disorders of plasma-protein metabolism, not elsewhere classified; R50.9 Fever, unspecified; R74.0 Nonspecific elevation of levels of transaminase and lactic acid dehydrogenase [LDH]
CPT/HCPCS: 36415; 49406; 71260-TC; 71275-TC; 74177-TC; 76098-TC; 76700-TC; 77012-TC; 80048; 80053; 80074; 80076; 80307; 81003; 81015; 82150; 82248; 82784; 83010; 83605; 83615; 83690; 83735; 84100; 84484; 85025; 85044; 85610; 85651; 85730; 86140; 86308; 86644; 86664; 87040; 87070; 87075; 87086; 87186; 87205; 87389; 87804; 87899; 88108; 88305-TC; 93005; 93010; 93306-TC; 94010; 99282-25; C1729; C1769

== ENCOUNTER 2017-03-13 14:40 | Emergency (ER) | payer BC ==
[2017-03-13 14:51] VITALS: BMI 31.5
--- NOTE | 2017-03-13 14:51 | PDOC ---
Rapid Medical Evaluation Time Seen by Provider: 03/13/17 14:48 Medical Evaluation: Allergies Allergy/AdvReac Type Severity Reaction Status Date / Time No Known Allergies Allergy Verified 12/02/16 13:59 03/13/17 14:48 I have performed a brief in-person evaluation of this patient. The patient presents with a chief complaint of: Pain to LUQ and generalized weakness w/ subj fever. S/p splenectomy /2 abscesses C/B septicemia 12/13 Pertinent physical exam findings:Stable w/ ttp to L mid abd I have ordered the following:labs The patient will proceed to the ED for further evaluation. Discharge Disposition - Referrals Referrals: Chirag Correia MD [Primary Care Provider] - - Patient Instructions - Post Discharge Activity
[2017-03-13 15:23] LABS: URINE APPEARANCE SLCLOUDY; URINE BILIRUBIN NEGATIVE (NEGATIVE); URINE BLOOD NEGATIVE (NEGATIVE); URINE COLOR YELLOW; URINE GLUCOSE (UA) NEGATIVE (NEGATIVE); URINE KETONE 1+ (NEGATIVE); URINE NITRITE NEGATIVE (NEGATIVE); URINE PROTEIN NEGATIVE (NEGATIVE); URINE UROBILINOGEN NEGATIVE mg/dL (0.2-1.0)
[2017-03-13 15:28] LABS: BASOPHIL 0.7 % (0-2.0); EOSINOPHIL 0.1 % (0-4.5); MCH 26.2 pg (25.7-33.7); MCHC 32.6 g/dl (32.0-35.9); MEAN CELL VOLUME 80.3 fl (80-96); MEAN PLT VOLUME 7.4 fl (7.5-11.1); NEUTROPHILS 68.2 % (42.8-82.8); PLATELET COUNT 479 K/MM3 (134-434); RDW 16.1 % (11.9-15.9); WHITE BLOOD COUNT 17.5 K/mm3 (4.0-10.0)
[2017-03-13 15:45] LABS: ALBUMIN 3.8 g/dl (3.4-5.0); ANION GAP 6 (8-16); CO2 30 mmol/L (21-32); CREATININE 0.8 mg/dL (0.7-1.3); GLUCOSE,RANDOM 85 mg/dL (74-106); SGOT/AST 15 U/L (15-37); SGPT/ALT 28 U/L (12-78); TOT PROT 7.4 g/dl (6.4-8.2)
--- NOTE | 2017-03-13 15:48 | PDOC ---
History of Present Illness <Luis M Sanchez - Last Filed: 03/13/17 23:03> - General History Source: Patient Exam Limitations: No Limitations - History of Present Illness Initial Comments: 03/13/17 16:36 The patient is a 27 year old male, with no significant past medical history who presents to the emergency department with LLQ abdominal pain for the past 2 days. Patient reports LLQ abdominal pain, pressure-like, non radiating, intermittent with no associated symptoms. Patient denies fevers, chills. Patient denies any trauma, heavy lifting. Currently in the ED, patient rates pain is 5/10 in severity. He denies chest pain, headache or dizziness. He denies nausea, vomit, diarrhea or constipation. He denies dysuria, frequency, urgency or hematuria. Patient denies sick contacts or recent travel. Allergies: NKA Past surgical history: Splenectomy Nov 2016 Social history: Social EtOH use PCP: Dr. Correia <Karlee Slaughter - Last Filed: 03/13/17 23:13> - General Chief Complaint: Pain Stated Complaint: LEFT SIDE PAIN Time Seen by Provider: 03/13/17 14:48 Past History - Past Medical History COPD: No Diabetes: No HTN: No Hypercholesterolemia: No - Suicide/Smoking/Psychosocial Hx Smoking Status: No Smoking History: Never smoked Have you smoked in the past 12 months: No Number of Cigarettes Smoked Daily: 0 Hx Alcohol Use: No Drug/Substance Use Hx: No Substance Use Type: None <Luis M Sanchez - Last Filed: 03/13/17 23:03> <Karlee Slaughter - Last Filed: 03/13/17 23:13> - Past Medical History Allergies/Adverse Reactions: Allergies Allergy/AdvReac Type Severity Reaction Status Date / Time No Known Allergies Allergy Verified 03/13/17 14:51 Home Medications: Ambulatory Orders Amoxicillin/Potassium Clav [Augmentin 875-125 Tablet] 1 each PO BID #20 tablet 03/13/17 Review of Systems - Review of Systems Able to Perform ROS?: Yes Comments:: 03/13/17 16:36 CONSTITUTIONAL: No fever, no chills, no fatigue EYES: No visual changes ENT: No ear pain, no sore throat CARDIOVASCULAR: No chest pain, no palpitations RESPIRATORY: No cough, no SOB GI: + LLQ abdominal pain. No nausea, no vomiting, no constipation, no diarrhea GENITOURINARY: No dysuria, no frequency, no hematuria MUSKULOSKELETAL: No back pain, no joint pain, no myalgias SKIN: No rash NEURO: No headache <Karlee Slaughter - Last Filed: 03/13/17 23:13> *Physical Exam - Vital Signs Last Vital Signs Temp Pulse Resp BP Pulse Ox 97.6 F 100 H 20 145/76 98 03/13/17 14:47 03/13/17 14:47 03/13/17 14:47 03/13/17 14:47 03/13/17 14:47 <Alexa Sanchezis - Last Filed: 03/13/17 23:03> - Vital Signs Last Vital Signs Temp Pulse Resp BP Pulse Ox 97.6 F 100 H 20 145/76 98 03/13/17 14:47 03/13/17 14:47 03/13/17 14:47 03/13/17 14:47 03/13/17 14:47 - Physical Exam Comments: 03/13/17 16:37 CONSTITUTIONAL: Well-appearing; well-nourished; in no apparent distress HEAD: Normocephalic; atraumatic EYES: PERRL; EOM intact ENMT: External appears normal; normal oropharynx NECK: Supple; nontender; no cervical lymphadenopathy CARD: Normal S1, S2; no murmurs, rubs, or gallops RESP: Normal chest excursion with respiration; breath sounds clear and equal bilaterally; no wheezes, rhonchi, or rales ABD: + Mild LLQ tenderness. No testicular tenderness. Soft, non-distended; non- tender; no palpable organomegaly, no palpable hernias EXT: Normal ROM in all four extremities; non-tender to palpation; distal pulses intact SKIN: Warm, dry, no rash NEURO: No focal neurological deficiencies. <Karlee Slaughter - Last Filed: 03/13/17 23:13> ED Treatment Course - LABORATORY CBC & Chemistry Diagram: 03/13/17 15:14 03/13/17 15:14 - ADDITIONAL ORDERS Additional order review: Laboratory Results 03/13/17 15:14 Sodium 139 Potassium 3.9 Chloride 103 Carbon Dioxide 30 Anion Gap 6 L BUN 9 Creatinine 0.8 Creat Clearance w eGFR > 60 Random Glucose 85 Calcium 9.0 AST 15 D ALT 28 D Total Protein 7.4 D Albumin 3.8 D 03/13/17 15:14 RBC 5.46 D MCV 80.3 MCHC 32.6 RDW 16.1 H MPV 7.4 L Neutrophils % 68.2 Lymphocytes % 22.3 D Monocytes % 8.7 Eosinophils % 0.1 D Basophils % 0.7 D <LauraLuis M - Last Filed: 03/13/17 23:03> - LABORATORY CBC & Chemistry Diagram: 03/13/17 15:14 03/13/17 15:14 - ADDITIONAL ORDERS Additional order review: Laboratory Results 03/13/17 03/13/17 15:14 15:05 Sodium 139 Potassium 3.9 Chloride 103 Carbon Dioxide 30 Anion Gap 6 L BUN 9 Creatinine 0.8 Creat Clearance w eGFR > 60 Random Glucose 85 Calcium 9.0 Total Bilirubin 0.5 D AST 15 D ALT 28 D Alkaline Phosphatase 99 Total Protein 7.4 D Albumin 3.8 D Urine Color Yellow Urine Appearance Slcloudy Urine pH 6.0 Ur Specific [place] 1.030 Urine Protein Negative Urine Glucose (UA) Negative Urine Ketones 1+ H Urine Blood Negative Urine Nitrite Negative Urine Bilirubin Negative Urine Urobilinogen Negative 03/13/17 15:14 RBC 5.46 D MCV 80.3 MCHC 32.6 RDW 16.1 H MPV 7.4 L Neutrophils % 68.2 Lymphocytes % 22.3 D Monocytes % 8.7 Eosinophils % 0.1 D Basophils % 0.7 D <Karlee Slaughter - Last Filed: 03/13/17 23:13> Medical Decision Making - Medical Decision Making 03/13/17 20:39 Patient is a 27-year-old male who presents to the ER with atraumatic left-sided abdominal pain 3 months after undergoing a splenectomy. In the ER, patient is awake and alert, with minimal left sided tenderness to deep palpation. There is no CVA tenderness. CBC reveals leukocytosis of 17,000. CT abd And pelvis reveals accessory spleen but no evidence of acute intra-abdominal pathology. Urinalysis is within normal limit. Patient is not experiencing any respiratory symptoms at this time. 03/13/17 23:03 Patient reassessed. Patient is resting comfortably and is currently asymptomatic. I discussed the case with Dr. Correia, patient's PCP. Blood and urine cultures been obtained. Patient will receive a dose of ceftriaxone and will be discharged with Augmentin with outpatient follow-up. Patient is hemodynamically stable and safe for outpatient discharge at this time. <Luis M Sanchez - Last Filed: 03/13/17 23:03> - Medical Decision Making 03/13/17 22:00 Dr. Correia paged via phone answering service. Awaitng call back. 03/13/17 22:15 Page returned. Patients case discussed with attending <Karlee Slaughter - Last Filed: 03/13/17 23:13> *DC/Admit/Observation/Transfer - Attestations Physician Attestion: 03/13/17 20:39 The documentation was prepared by the scribe under my direct supervision. I have reviewed the documentation which correctly represents the findings, medical decision-making and critical action taken by me. <Luis M Sanchez - Last Filed: 03/13/17 23:03> - Attestations Scribe Attestion: 03/13/17 16:37 Documentation prepared by Karlee Slaughter, acting as nuclear medical technologist for Luis M Sanchez MD <Karlee Slaughter - Last Filed: 03/13/17 23:13> Diagnosis at time of Disposition: Abdominal pain Qualifiers: Abdominal location: left lower quadrant Qualified Code(s): R10.32 - Left lower quadrant pain Leukocytosis Qualifiers: Leukocytosis type: unspecified Qualified Code(s): D72.829 - Elevated white blood cell count, unspecified - Discharge Dispostion Disposition: HOME Condition at time of disposition: Stable - Prescriptions Prescriptions: Amoxicillin/Potassium Clav [Augmentin 875-125 Tablet] 1 each PO BID #20 tablet - Referrals Referrals: Chirag Correia MD [Primary Care Provider] - - Patient Instructions Printed Discharge Instructions: DI for Abdominal Pain-Adult, DI for Leukocytosis - Post Discharge Activity
[2017-03-13 15:51] LABS: ALK PHOS 99 U/L (45-117); BILIRUBIN,TOTAL 0.5 mg/dL (0.2-1.0)
[2017-03-13] MEDS ORDERED: SODIUM CHLORIDE 1,000 ML IV STA (16:03)
[2017-03-13 20:57] VITALS: BP 131/69; PULSE 84; TEMP 97.7
[2017-03-13] MEDS ORDERED: CEFTRIAXONE 1 GM in DEXTROSE 5%-WATER - 50 ML IVPB ONE (21:03)
[2017-03-13 21:19] LABS: URINE LEUK ESTERASE Negative (NEGATIVE)
[2017-03-13] MEDS ORDERED: CEFTRIAXONE 1 GM/50 ML BAG ONE (21:54)
== END 2017-03-13 23:21 | disposition home or self-care (01) ==
LOC: JER 14:40
PROC: 3E03329 Introduction of Other Anti-infective into Peripheral Vein, Percutaneous Approach (ICD-10-PCS; principal; 2017-03-13)
PROC: 3E0337Z Introduction of Electrolytic and Water Balance Substance into Peripheral Vein, Percutaneous Approach (ICD-10-PCS; 2017-03-13)
DX: R10.32 Left lower quadrant pain (principal); D72.829 Elevated white blood cell count, unspecified
CPT/HCPCS: 36415; 74177-TC; 80053; 81003; 85025; 87040; 99282-25

== ENCOUNTER 2019-05-11 01:39 | Emergency (ER) | payer BC ==
[2019-05-11 01:47] VITALS: BP 130/83; PULSE 106; TEMP 101.2; BMI 32.9
--- NOTE | 2019-05-11 01:58 | PDOC ---
History of Present Illness - General Chief Complaint: Respiratory Stated Complaint: FEVER Time Seen by Provider: 05/11/19 01:52 History Source: Patient Exam Limitations: No Limitations - History of Present Illness Initial Comments: 05/11/19 01:56 This is a 29-year-old male who comes in complaining of a fever. Patient is status post vasectomy a number of years ago. Patient said that he was told that if he gets a fever he should immediately go to the hospital. Patient denies any other symptoms. Patient denies any headache, body aches, nausea vomiting diarrhea abdominal pain or any other complaints. However it is flu season so most likely this may be the flu. Allergies: as per nursing notes Past Medical History: none Social history: Lives with family. No smoking. No alcohol. No illicit drugs. Surgical history: None General: No fevers or chills, no weakness, no weight loss HEENT: No change in vision. No sore throat,. No ear pain CardioVascular: no chest discomfort. No shortness of breath Respiratory:No cough, or wheezing. Gastrointestinal: no nausea, vomiting, diarrhea or constipation, No rectal bleeding Genitourinary: No dysuria, hematuria, or frequency Musculoskeletal: No joint or muscle pain or swelling Neurologic: No headache, vertigo, dizziness or loss of consciousness Psychiatric: nor depression Skin: No rashes or easy bruising Endocrine: no increased thirst or abnormal weight change Allergic: no skin or latex allergy All other systems reviewed and normal Exam: General: Well-nourished well-developed individual, no acute distress HEENT: Throat: Normal, tonsils normal, no erythema or exudate Neck: Supple, no meningeal signs, no lymphadenopathy Eyes::Pupils equal reactive and round, extraocular motion intact Chest: Nontender to palpation Cardiac: S1-S2 normal, regular rate and rhythm, no murmurs rubs or gallops Respiratory: Lungs clear to auscultation bilateral Abdomen: Soft, nondistended, normal bowel sounds, there is no tenderness on palpation diffusely Extremities: Warm, dry, no cyanosis, clubbing, or edema Skin: No rashes Neuro: Alert and oriented x3, CN II - XII intact, nonfocal exam with normal strength, normal sensation, normal reflexes, normal gait, Psych: Normal mood and affect Past History - Past Medical History Allergies/Adverse Reactions: Allergies Allergy/AdvReac Type Severity Reaction Status Date / Time No Known Allergies Allergy Verified 05/11/19 01:41 Home Medications: Ambulatory Orders Amoxicillin - [Amoxicillin 500mg Capsule -] 500 mg PO BID 05/11/19 Oseltamivir Phosphate [Tamiflu] 75 mg PO BID #10 capsule 05/11/19 COPD: No Diabetes: No HTN: No Hypercholesterolemia: No - Psycho Social/Smoking Cessation Hx Smoking Status: No Smoking History: Never smoked Have you smoked in the past 12 months: No Number of Cigarettes Smoked Daily: 0 Information on smoking cessation initiated: No Hx Alcohol Use: No Drug/Substance Use Hx: No Substance Use Type: None *Physical Exam - Vital Signs Last Vital Signs Temp Pulse Resp BP Pulse Ox 101.2 F H 106 H 16 130/83 98 05/11/19 01:43 05/11/19 01:43 05/11/19 01:43 05/11/19 01:43 05/11/19 01:43 Discharge - Discharge Information Problems reviewed: Yes Clinical Impression/Diagnosis: Fever Condition: Stable Disposition: HOME - Admission No - Follow up/Referral Referrals: Chirag Correia MD [Primary Care Provider] - - Patient Discharge Instructions Additional Instructions: If the fever continues and you developed other symptoms of the flu get the prescription filled for the Tamiflu and take it as prescribed Return to the emergency department immediately with ANY new, persistent or worsening symptoms. Continue any medications as previously prescribed by your physician. You should follow up with your primary doctor as soon as possible regarding today's emergency department visit. . Please make sure your doctor reviews the results of your emergency evaluation. Thank you for coming to the Emergency Department today for your care. It was a pleasure to see you today. Please note that your evaluation is INCOMPLETE until you follow-up with your doctor. - Post Discharge Activity
== END 2019-05-11 02:40 | disposition home or self-care (01) ==
LOC: FER 01:39
DX: R50.9 Fever, unspecified (principal)
CPT/HCPCS: 87040; 99281-25

== ENCOUNTER 2022-10-21 08:09 | Emergency (ER) | payer OTHER ==
[2022-10-21 08:33] VITALS: BP 124/84; PULSE 94; RESP 18; TEMP 99.3; BMI 31.7
== END 2022-10-21 08:48 | disposition home or self-care (01) ==
LOC: FER 08:09
DX: S39.011A Strain of muscle, fascia and tendon of abdomen, initial encounter (principal); S86.911A Strain of unspecified muscle(s) and tendon(s) at lower leg level, right leg, initial encounter; Y04.0XXA Assault by unarmed brawl or fight, initial encounter
CPT/HCPCS: 99283-25

== ENCOUNTER 2022-12-23 16:41 | Emergency (ER) | payer BC, OTHER ==
[2022-12-23] MEDS ORDERED: ACETAMINOPHEN 500 MG TABLET (FP) PO ONE (16:49)
[2022-12-23] MEDS ORDERED: DEXAMETHASONE SOD PHOSPHATE 10 MG/1 ML VIAL IVPUSH ONE (16:57)
[2022-12-23] MEDS ORDERED: ACETAMINOPHEN 500 MG TABLET (FP) ONE (16:57)
[2022-12-23 16:58] VITALS: BP 123/75; PULSE 95; RESP 20; TEMP 103.1; BMI 30.2
[2022-12-23] MEDS ORDERED: DEXAMETHASONE SOD PHOSPHATE/PF 10 MG/ML SDV ONE (16:58)
[2022-12-23 18:39] LABS: THROAT:GRP A STREP NOT DETECTED (NOTDETECTED)
== END 2022-12-23 17:32 | disposition home or self-care (01) ==
LOC: FER 16:41
PROC: 3E033GC Introduction of Other Therapeutic Substance into Peripheral Vein, Percutaneous Approach (ICD-10-PCS; principal; 2022-12-23)
DX: J02.0 Streptococcal pharyngitis (principal); R50.9 Fever, unspecified; M79.10 Myalgia, unspecified site; Z20.822 Contact with and (suspected) exposure to COVID-19
CPT/HCPCS: 0241U-QW; 87651; 99284-25; J1100

== ENCOUNTER 2023-03-03 01:57 | Emergency (ER) | payer OTHER ==
[2023-03-03 01:19] VITALS: BP 128/83; PULSE 91; RESP 19; TEMP 99.7; BMI 31.0
== END 2023-03-03 02:15 | disposition home or self-care (01) ==
LOC: FER 01:57
DX: M25.561 Pain in right knee (principal); Z77.21 Contact with and (suspected) exposure to potentially hazardous body fluids
CPT/HCPCS: 99282-25

== ENCOUNTER 2023-03-19 15:57 | Emergency (ER) | payer BC, OTHER ==
[2023-03-19 16:13] VITALS: BP 124/86; PULSE 104; RESP 16; TEMP 98; BMI 30.4
[2023-03-19] MEDS ORDERED: SODIUM CHLORIDE 0.9% 1000 ML INFUS.BAG IV ONE (16:18)
[2023-03-19] MEDS ORDERED: MAG HYDROX/AL HYDROX/SIMETH 30 ML UNIT-DOSE CUP PO ONE (16:18)
[2023-03-19] MEDS ORDERED: MAG HYDROX/AL HYDROX/SIMETH 30 ML UNIT-DOSE CUP ONE (16:51)
[2023-03-19 17:27] LABS: HEMATOCRIT 51.3 % (35.4-49); HEMOGLOBIN 17.1 G/dL (11.7-16.9); MCH 29.5 pg (25.7-33.7); MCHC 33.3 g/dl (32.0-35.9); MEAN CELL VOLUME 88.7 fl (80-96); MEAN PLT VOLUME 7.5 fl (7.5-11.1); PLATELET COUNT 330.9 10^3/uL (134-434); RBC 5.78 10^6/uL (4.00-5.60); RDW 14.6 % (11.9-15.9); WHITE BLOOD COUNT 14.1 10^3/uL (4.0-10.8)
[2023-03-19 17:33] LABS: ALBUMIN 4.2 g/dl (3.4-5.0); BILIRUBIN,TOTAL 0.6 mg/dl (0.2-1); CALCIUM 9.5 mg/dl (8.5-10.1); MAGNESIUM 2.2 mg/dL (1.8-2.4); POTASSIUM 4.2 mmol/L (3.5-5.1); TOT PROT 6.6 g/dl (6.4-8.2)
[2023-03-19] MEDS ORDERED: FAMOTIDINE 20 MG/50 ML IVPB 20 MG/50 ML MG IVPB ONE ×2 (18:00→18:37)
[2023-03-19 18:29] LABS: PLATELET ESTIMATE ADEQUATE
== END 2023-03-19 23:28 | disposition home or self-care (01) ==
LOC: FER 15:57
PROC: 3E033GC Introduction of Other Therapeutic Substance into Peripheral Vein, Percutaneous Approach (ICD-10-PCS; principal; 2023-03-19)
DX: R07.9 Chest pain, unspecified (principal); U07.1 COVID-19; R10.13 Epigastric pain; D72.829 Elevated white blood cell count, unspecified
CPT/HCPCS: 0241U-QW; 36415; 71046-TC-FY; 71275-TC; 74160-TC; 80053; 81003; 83690; 83735; 84484; 85027; 87086; 93005; 99285-25; Q9967

== ENCOUNTER 2023-09-11 12:33 | Emergency (ER) | payer OTHER, BC ==
[2023-09-11 12:49] VITALS: BP 124/79; PULSE 83; RESP 16; TEMP 98.2; BMI 32.5
== END 2023-09-11 12:51 | disposition home or self-care (01) ==
LOC: FER 12:33
DX: S50.12XA Contusion of left forearm, initial encounter (principal); W26.8XXA Contact with other sharp object(s), not elsewhere classified, initial encounter
CPT/HCPCS: 99283-25

== ENCOUNTER 2023-12-18 15:41 | Emergency (ER) | payer BC, OTHER ==
[2023-12-18 15:58] VITALS: BMI 32.5
[2023-12-18] MEDS ORDERED: IBUPROFEN 600 MG TABLET (FP) PO ONE (16:16)
[2023-12-18] MEDS ORDERED: guaiFENesin/D-METHORPHAN HB 10 ML UNIT-DOSE CUPS ONE (16:17)
[2023-12-18] MEDS: IBUPROFEN 600 MG TABLET (FP) PO ONE (16:18)
[2023-12-18] MEDS: guaiFENesin 200 MG/10 ML 10 ML UNIT-DOSE CUPS PO ONE (16:18)
[2023-12-18 17:18] VITALS: BP 118/81; PULSE 104; RESP 18; TEMP 100.8
[2023-12-18 17:59] LABS: THROAT:GRP A STREP NOT DETECTED (NOTDETECTED)
== END 2023-12-18 17:18 | disposition home or self-care (01) ==
LOC: FER 15:41
DX: R05.9 Cough, unspecified (principal); R50.9 Fever, unspecified; R09.81 Nasal congestion; J18.9 Pneumonia, unspecified organism; Z20.822 Contact with and (suspected) exposure to COVID-19
CPT/HCPCS: 0241U-QW; 71046-TC-FY; 87651; 99284-25